=== PATIENT | male | born 1995 | race Caucasian/White ===

== ENCOUNTER 2016-05-20 11:49 | Emergency (ER) | payer OTHER ==
[~2016-05-20 11:49] MED LIST: AZIT250T3 PO; LORA10TA2 PO; NAPR250T2 PO; OMEP40CA2 PO; PERC5TAB6 PO
--- NOTE | 2016-05-20 15:10 | EDDOCDS ---
Physician Documentation [facility] Name: Donato Bacon Age: 21 yrs Sex: Male : 1995 Arrival Date: 05/20/2016 Time: 11:49 Bed 31 Private MD: Alex Gutierrez W Disposition: 05/20/16 14:45 Discharged to Home/Self Care. Impression: Anxiety disorder, unspecified. - Condition is Stable. - Discharge Instructions: Panic Attacks, Generalized Anxiety Disorder. - Prescriptions for Ativan 0.5 mg Oral Tablet - take 1 tablet by ORAL route every 8 hours As needed; 10 tablet. - Medication Reconciliation, Local Pharmacy Hours form. - Follow up: Alex Gutierrez; When: 1 - 2 days; Reason: Recheck today's complaints. - Problem is new. - Symptoms have improved. - Notes: You were seen in the ED for anxiety. You were seen by social work as well and provided with outpatient mental health referrals for ongoing care and treatment - please call today to make this appointment. You may take Ativan as needed for anxiety (no driving or operating machinery while on this medication). Return to the ED for any worsening depression, thoughts of harming self or others or any other concerns. Historical: - Allergies: No known drug Allergies; - Home Meds: 1. omeprazole 40 mg Oral cpDR 1 cap once daily 2. loratadine 10 mg Oral tab 1 tab once daily - PMHx: Seasonal Allergies; GERD; fractured ribs; Anxiety; - PSHx: none; - Social history: Smoking status: other Patient uses street drugs, marijuana, No barriers to communication noted, The patient speaks fluent Kazakh, Speaks appropriately for age. - Family history: Not pertinent. - : The pt / caregiver states he / she is not on anticoagulants. Home medication list is obtained from the patient. - Exposure Risk Screening:: None identified. Vital Signs: 05/20 11:51 BP 144 / 79; Pulse 75; Resp 18 S; Temp 97.8(O); Pulse Ox 100% on R/A; Weight 70.31 kg / gr2 155.01 lbs (R); Height 5 ft. 9 in. (175.26 cm) (R); Pain 0/10; 15:07 BP 135 / 72; Pulse 72; Resp 16; Temp 97.6(O); Pulse Ox 98% on R/A; Pain 0/10; mlb1 11:51 Body Mass Index 22.89 (70.31 kg, 175.26 cm) gr2 MDM: 12:48 Consult PFS/PSA/Patient Assistant ordered. br1 12:48 Confirm accurate psychiatric medication list and times of last dosage ordered. br1 14:55 Consult PFS/PSA/Patient Assistant complete. mlb1 Signatures: Darian Kingsley RN RN mlb1 Jovana Joe RN RN ck1 Richmond Rothman MD MD br1 MTDD
--- NOTE | 2016-05-20 15:10 | EDDOCDS ---
Nurse's Notes [facility] Name: Donato Bacon Age: 21 yrs Sex: Male : 1995 Arrival Date: 05/20/2016 Time: 11:49 Bed 31 Private MD: Alex Gutierrez W Diagnosis: Anxiety disorder, unspecified Presentation: 05/20 12:00 Presenting complaint: Patient states: Worsening anxiety over the years. "It's socially ck1 crippling". Mental Health Triage Level: Level 1- Pt displays no suicidal or homicidal ideations and does not appear to be a danger to self or others. Adult Sepsis Screening: The patient does not have new or worsening altered mentation. Patient's respiratory rate is less than 22. Systolic blood pressure is greater than 100. Patient has a qSOFA score of 0- Negative Sepsis Screen. Suicide/Homicide risk assessment- the patient denies having any suicidal and/or homicidal ideations and does not present with any other emotional, behavioral or mental health complaints. 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 Transition of care: patient was not received from another setting of care. 12:00 Acuity: [place] Level 4 ck1 12:00 Method Of Arrival: Walkin/Carried/Asstd ck1 Triage Assessment: 12:02 General: Appears in no apparent distress, comfortable, Behavior is anxious, ck1 cooperative. Pain: Denies pain. HIV screening NA for this visit. HIV screening NA for this visit Offered previously. Neurological: Level of Consciousness is awake, alert, obeys commands, Oriented to person, place, time. Respiratory: Respiratory effort is unlabored, Respiratory pattern is regular, symmetrical. GI: Reports anorexia. GI: Reports nausea. Derm: Skin is pink, warm & dry. Historical: - Allergies: No known drug Allergies; - Home Meds: 1. omeprazole 40 mg Oral cpDR 1 cap once daily 2. loratadine 10 mg Oral tab 1 tab once daily - PMHx: Seasonal Allergies; GERD; fractured ribs; Anxiety; - PSHx: none; - Social history: Smoking status: other Patient uses street drugs, marijuana, No barriers to communication noted, The patient speaks fluent [place], Speaks appropriately for age. - Family history: Not pertinent. - : The pt / caregiver states he / she is not on anticoagulants. Home medication list is obtained from the patient. - Exposure Risk Screening:: None identified. Screenin:14 Screening information is obtained from the patient. Fall risk: No risks identified. mlb1 Assistance ADL's: requires no assistance with activities of daily living. Abuse/DV Screen: The patient / caregiver reports he/she is: not in a situation that causes fear, pain or injury. Nutritional screening: No deficits noted. Advance Directives: Currently, there is no health care proxy. home support is adequate. Assessment: 12:13 General: Appears in no apparent distress, Behavior is anxious, cooperative. Pain: mlb1 Denies pain. Neurological: No deficits noted. Respiratory: Airway is patent Respiratory effort is even, unlabored. Derm: No deficits noted. 13:46 General: Appears in no apparent distress, comfortable, Behavior is anxious, mlb1 cooperative. Pain: Denies pain. Neurological: No deficits noted. 14:45 General: Appears in no apparent distress, Behavior is anxious, cooperative. Pain: mlb1 Denies pain. Neurological: No deficits noted. Respiratory: Airway is patent Respiratory effort is even, unlabored. 15:07 General: Appears in no apparent distress, comfortable, Behavior is anxious, mlb1 cooperative, quiet. Pain: Denies pain. Neurological: No deficits noted. Vital Signs: 11:51 BP 144 / 79; Pulse 75; Resp 18 S; Temp 97.8(O); Pulse Ox 100% on R/A; Weight 70.31 kg gr2 (R); Height 5 ft. 9 in. (175.26 cm) (R); Pain 0/10; 15:07 BP 135 / 72; Pulse 72; Resp 16; Temp 97.6(O); Pulse Ox 98% on R/A; Pain 0/10; mlb1 11:51 Body Mass Index 22.89 (70.31 kg, 175.26 cm) gr2 Vitals: 11:51 Log In Time: May 20, 2016 at 11:51. RN notified that patient meets Red Flag gr2 criteria. ED Course: 11:51 Patient visited by Lise Jaramillo. gr2 11:51 Alex Gutierrez is Private Physician. gr2 11:51 Patient moved to Waiting gr2 12:00 Patient visited by Lise Jaramillo. gr2 12:01 Triage Initiated ck1 12:03 Patient moved to 31 ck1 12:14 Patient visited by Darian Kingsley RN. mlb1 12:33 Richmond Rothman MD is Attending Physician. br1 12:47 Patient visited by Richmond Rothman MD. br1 13:45 Patient visited by John Mack. jml1 13:46 Patient visited by Darian Kingsley RN. mlb1 14:30 Patient visited by Justin Jimenez PCA. j 14:44 Alex Gutierrez is Referral Physician. br1 14:46 Patient visited by Justin Jimenez PCA. j 14:53 The patient / caregiver is instructed regarding the plan of care and ED course. mlb1 14:53 No IV's were initiated during this patient's visit. No procedures done that require mlb1 assistance. 15:02 Patient visited by Justin Jimenez PCA. [facility] 15:09 Patient visited by Darian Kingsley RN. mlb1 Order Results: There are currently no results for this order. Outcome: 14:45 Discharge ordered by Provider. br1 15:08 Discharge Assessment: Patient awake, alert and oriented x 3. No cognitive and/or mlb1 functional deficits noted. Patient verbalized understanding of disposition instructions. patient administered narcotics - no. The following High Risk Discharge criteria are identified: None. Discharged to home ambulatory. Condition: good. Discharge instructions given to patient, Instructed on discharge instructions, follow up and referral plans. medication usage, Demonstrated understanding of instructions, medications, Pt was receptive of discharge instructions/ teaching. Prescriptions given X 1. No special radiology studies were completed. Property sent home with patient. 15:09 Patient left the ED. mlb1 Signatures: Darian Kingsley, RN RN mlb1 Jovana Joe RN RN ck1 Richmond Rothman MD MD br1 John Mack jml1 Lise Jaramillo gr2 Justin Jimenez PCA [facility] MTDD
--- NOTE | 2016-05-22 16:10 | EDDOCDS ---
Physician Documentation [facility] Name: Donato Bacon Age: 21 yrs Sex: Male : 1995 Arrival Date: 05/20/2016 Time: 11:49 Bed 31 Private MD: Alex Gutierrez W Disposition: 05/20/16 14:45 Discharged to Home/Self Care. Impression: Anxiety disorder, unspecified. - Condition is Stable. - Discharge Instructions: Panic Attacks, Generalized Anxiety Disorder. - Prescriptions for Ativan 0.5 mg Oral Tablet - take 1 tablet by ORAL route every 8 hours As needed; 10 tablet. - Medication Reconciliation, Local Pharmacy Hours form. - Follow up: Alex Gutierrez; When: 1 - 2 days; Reason: Recheck today's complaints. - Problem is new. - Symptoms have improved. - Notes: You were seen in the ED for anxiety. You were seen by social work as well and provided with outpatient mental health referrals for ongoing care and treatment - please call today to make this appointment. You may take Ativan as needed for anxiety (no driving or operating machinery while on this medication). Return to the ED for any worsening depression, thoughts of harming self or others or any other concerns. Historical: - Allergies: No known drug Allergies; - Home Meds: 1. omeprazole 40 mg Oral cpDR 1 cap once daily 2. loratadine 10 mg Oral tab 1 tab once daily - PMHx: Seasonal Allergies; GERD; fractured ribs; Anxiety; - PSHx: none; - Social history: Smoking status: other Patient uses street drugs, marijuana, No barriers to communication noted, The patient speaks fluent Irish, Speaks appropriately for age. - Family history: Not pertinent. - : The pt / caregiver states he / she is not on anticoagulants. Home medication list is obtained from the patient. - Exposure Risk Screening:: None identified. Vital Signs: 05/20 11:51 BP 144 / 79; Pulse 75; Resp 18 S; Temp 97.8(O); Pulse Ox 100% on R/A; Weight 70.31 kg / gr2 155.01 lbs (R); Height 5 ft. 9 in. (175.26 cm) (R); Pain 0/10; 15:07 BP 135 / 72; Pulse 72; Resp 16; Temp 97.6(O); Pulse Ox 98% on R/A; Pain 0/10; mlb1 11:51 Body Mass Index 22.89 (70.31 kg, 175.26 cm) gr2 MDM: 12:48 Consult PFS/PSA/Woods Manager ordered. br1 12:48 Confirm accurate psychiatric medication list and times of last dosage ordered. br1 14:55 Consult PFS/PSA/Woods Manager complete. mlb1 15:13 Financial registration complete. mm15 15:13 [facility] [place] was scanned into spigit and attached to record. mm15 05/21 12:56 T-Sheet-- Draft Copy was scanned into spigit and attached to record. gb Signatures: Rupa Orodñez, Reg Reg gb Darian Kingsley RN RN mlb1 Jovana Joe RN RN ck1 Richmond Rothman MD MD br1 Kathryn Dhillon mm15 The chart was reviewed and I authenticate all verbal orders and agree with the evaluation and treatment provided.Attachments: 05/20 15:13 [facility] [place] mm15 05/21 12:56 T-Sheet-- Draft Copy gb Chart Complete MTDD
--- NOTE | 2016-05-22 16:10 | EDDOCDS ---
Nurse's Notes [facility] Name: Donato Bacon Age: 21 yrs Sex: Male : 1995 Arrival Date: 05/20/2016 Time: 11:49 Bed 31 Private MD: Alex Gutierrez W Diagnosis: Anxiety disorder, unspecified Presentation: 05/20 12:00 Presenting complaint: Patient states: Worsening anxiety over the years. "It's socially ck1 crippling". Mental Health Triage Level: Level 1- Pt displays no suicidal or homicidal ideations and does not appear to be a danger to self or others. Adult Sepsis Screening: The patient does not have new or worsening altered mentation. Patient's respiratory rate is less than 22. Systolic blood pressure is greater than 100. Patient has a qSOFA score of 0- Negative Sepsis Screen. Suicide/Homicide risk assessment- the patient denies having any suicidal and/or homicidal ideations and does not present with any other emotional, behavioral or mental health complaints. 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 Transition of care: patient was not received from another setting of care. 12:00 Acuity: [place] Level 4 ck1 12:00 Method Of Arrival: Walkin/Carried/Asstd ck1 Triage Assessment: 12:02 General: Appears in no apparent distress, comfortable, Behavior is anxious, ck1 cooperative. Pain: Denies pain. HIV screening NA for this visit. HIV screening NA for this visit Offered previously. Neurological: Level of Consciousness is awake, alert, obeys commands, Oriented to person, place, time. Respiratory: Respiratory effort is unlabored, Respiratory pattern is regular, symmetrical. GI: Reports anorexia. GI: Reports nausea. Derm: Skin is pink, warm & dry. Historical: - Allergies: No known drug Allergies; - Home Meds: 1. omeprazole 40 mg Oral cpDR 1 cap once daily 2. loratadine 10 mg Oral tab 1 tab once daily - PMHx: Seasonal Allergies; GERD; fractured ribs; Anxiety; - PSHx: none; - Social history: Smoking status: other Patient uses street drugs, marijuana, No barriers to communication noted, The patient speaks fluent Uruguayan, Speaks appropriately for age. - Family history: Not pertinent. - : The pt / caregiver states he / she is not on anticoagulants. Home medication list is obtained from the patient. - Exposure Risk Screening:: None identified. Screenin:14 Screening information is obtained from the patient. Fall risk: No risks identified. mlb1 Assistance ADL's: requires no assistance with activities of daily living. Abuse/DV Screen: The patient / caregiver reports he/she is: not in a situation that causes fear, pain or injury. Nutritional screening: No deficits noted. Advance Directives: Currently, there is no health care proxy. home support is adequate. Assessment: 12:13 General: Appears in no apparent distress, Behavior is anxious, cooperative. Pain: mlb1 Denies pain. Neurological: No deficits noted. Respiratory: Airway is patent Respiratory effort is even, unlabored. Derm: No deficits noted. 13:46 General: Appears in no apparent distress, comfortable, Behavior is anxious, mlb1 cooperative. Pain: Denies pain. Neurological: No deficits noted. 14:45 General: Appears in no apparent distress, Behavior is anxious, cooperative. Pain: mlb1 Denies pain. Neurological: No deficits noted. Respiratory: Airway is patent Respiratory effort is even, unlabored. 15:07 General: Appears in no apparent distress, comfortable, Behavior is anxious, mlb1 cooperative, quiet. Pain: Denies pain. Neurological: No deficits noted. Social Work Consult: 15:37 Social Work Note: Pt presented with c/o severe anxiety, worsening over the last 3 days. ca Pt cannot pinpoint a specific stressor. He denies any SI or HI, no drugs or alcohol. Positive support system and was brought to ED by his mother. Provided pt with referrals to outpt walk-in clinics for MH. Also provided crisis numbers. Pt given a prescription, discharged with ride home. Vital Signs: 11:51 BP 144 / 79; Pulse 75; Resp 18 S; Temp 97.8(O); Pulse Ox 100% on R/A; Weight 70.31 kg gr2 (R); Height 5 ft. 9 in. (175.26 cm) (R); Pain 0/10; 15:07 BP 135 / 72; Pulse 72; Resp 16; Temp 97.6(O); Pulse Ox 98% on R/A; Pain 0/10; mlb1 11:51 Body Mass Index 22.89 (70.31 kg, 175.26 cm) gr2 Vitals: 11:51 Log In Time: May 20, 2016 at 11:51. RN notified that patient meets Red Flag gr2 criteria. ED Course: 11:51 Patient visited by Lise Jaramillo. gr2 11:51 Alex Gutierrez is Private Physician. gr2 11:51 Patient moved to Waiting gr2 12:00 Patient visited by Lise Jaramillo. gr2 12:01 Triage Initiated ck1 12:03 Patient moved to 31 ck1 12:14 Patient visited by Darian Kingsley, TYRA. mlb1 12:33 Richmond Rothman MD is Attending Physician. br1 12:47 Patient visited by Richmond Rothman MD. br1 13:45 Patient visited by John Mack. jml1 13:46 Patient visited by Darian Kingsley RN. mlb1 14:30 Patient visited by Justin Jimenez PCA. smj 14:44 Alex Gutierrez is Referral Physician. br1 14:46 Patient visited by Justin Jimenez PCA. smj 14:53 The patient / caregiver is instructed regarding the plan of care and ED course. mlb1 14:53 No IV's were initiated during this patient's visit. No procedures done that require mlb1 assistance. 15:02 Patient visited by Justin Jimenez PCA. smj 15:09 Patient visited by Darian Kingsley, TYRA. mlb1 15:13 [facility] Payment Agreement was scanned into Loco2 and attached to record. mm15 05/21 12:56 T-Sheet-- Draft Copy was scanned into Loco2 and attached to record. gb Order Results: There are currently no results for this order. Outcome: 05/20 14:45 Discharge ordered by Provider. br1 15:08 Discharge Assessment: Patient awake, alert and oriented x 3. No cognitive and/or mlb1 functional deficits noted. Patient verbalized understanding of disposition instructions. patient administered narcotics - no. The following High Risk Discharge criteria are identified: None. Discharged to home ambulatory. Condition: good. Discharge instructions given to patient, Instructed on discharge instructions, follow up and referral plans. medication usage, Demonstrated understanding of instructions, medications, Pt was receptive of discharge instructions/ teaching. Prescriptions given X 1. No special radiology studies were completed. Property sent home with patient. 15:09 Patient left the ED. mlb1 Signatures: Julia Shaver, PSA PSA ca Rupa Ordoñez, Reg Reg gb Sancho, Darian Webb RN RN mlb1 Heath,TYRA Whaley RN ck1 Richmond Rothman MD MD br1 John Mack jml1 Lise Jaramillo gr2 Kathryn Dhillon mm15 Justin Jimenez, ICHTHYOLOGIST ICHTHYOLOGIST [facility] Chart Complete MTDD
--- NOTE | 2016-05-22 16:10 | EDDOCDS ---
Physician Documentation [facility] Name: Donato Bacon Age: 21 yrs Sex: Male : 1995 Arrival Date: 05/20/2016 Time: 11:49 Bed 31 Private MD: Alex Gutierrez W Disposition: 05/20/16 14:45 Discharged to Home/Self Care. Impression: Anxiety disorder, unspecified. - Condition is Stable. - Discharge Instructions: Panic Attacks, Generalized Anxiety Disorder. - Prescriptions for Ativan 0.5 mg Oral Tablet - take 1 tablet by ORAL route every 8 hours As needed; 10 tablet. - Medication Reconciliation, Local Pharmacy Hours form. - Follow up: Alex Gutierrez; When: 1 - 2 days; Reason: Recheck today's complaints. - Problem is new. - Symptoms have improved. - Notes: You were seen in the ED for anxiety. You were seen by social work as well and provided with outpatient mental health referrals for ongoing care and treatment - please call today to make this appointment. You may take Ativan as needed for anxiety (no driving or operating machinery while on this medication). Return to the ED for any worsening depression, thoughts of harming self or others or any other concerns. Historical: - Allergies: No known drug Allergies; - Home Meds: 1. omeprazole 40 mg Oral cpDR 1 cap once daily 2. loratadine 10 mg Oral tab 1 tab once daily - PMHx: Seasonal Allergies; GERD; fractured ribs; Anxiety; - PSHx: none; - Social history: Smoking status: other Patient uses street drugs, marijuana, No barriers to communication noted, The patient speaks fluent Kazakh, Speaks appropriately for age. - Family history: Not pertinent. - : The pt / caregiver states he / she is not on anticoagulants. Home medication list is obtained from the patient. - Exposure Risk Screening:: None identified. Vital Signs: 05/20 11:51 BP 144 / 79; Pulse 75; Resp 18 S; Temp 97.8(O); Pulse Ox 100% on R/A; Weight 70.31 kg / gr2 155.01 lbs (R); Height 5 ft. 9 in. (175.26 cm) (R); Pain 0/10; 15:07 BP 135 / 72; Pulse 72; Resp 16; Temp 97.6(O); Pulse Ox 98% on R/A; Pain 0/10; mlb1 11:51 Body Mass Index 22.89 (70.31 kg, 175.26 cm) gr2 MDM: 12:48 Consult PFS/PSA/Table Games Floor Supervisor ordered. br1 12:48 Confirm accurate psychiatric medication list and times of last dosage ordered. br1 14:55 Consult PFS/PSA/Table Games Floor Supervisor complete. mlb1 15:13 Financial registration complete. mm15 15:13 [facility] [place] Agreement was scanned into HutGrip and attached to record. mm15 05/21 12:56 T-Sheet-- Draft Copy was scanned into HutGrip and attached to record. gb Signatures: Rupa Ordoñez, Reg Reg gb Darian Kingsley RN RN mlb1 Jovana Joe RN RN ck1 Richmond Rothman MD MD br1 Kathryn Dhillon mm15 The chart was reviewed and I authenticate all verbal orders and agree with the evaluation and treatment provided.Attachments: 05/20 15:13 [facility] [place] Agreement mm15 05/21 12:56 T-Sheet-- Draft Copy gb Chart Complete MTDD
== END 2016-05-20 15:09 | disposition home or self-care (01) ==
LOC: M ED 11:49
DX: F41.9 Anxiety disorder, unspecified (principal); K21.9 Gastro-esophageal reflux disease without esophagitis; J30.2 Other seasonal allergic rhinitis; F12.90 Cannabis use, unspecified, uncomplicated; Z79.899 Other long term (current) drug therapy

== ENCOUNTER 2016-05-22 13:02 | Inpatient (IN) | payer MEDICAID, OTHER ==
[~2016-05-22] VITALS: Ht 180.3 cm; Wt 69.9 kg
[2016-05-22] MEDS ORDERED: ALPRAZolam 0.25 MG TAB As Ordered ONE ×2 (13:54→18:21)
[2016-05-22 14:49] LABS: MEAN CORPUSCULAR HEMOGLOBIN 30.3 pg (27.0-33.0); MEAN CORPUSCULAR HGB CONC 32.6 g/dl (32.0-36.5); MEAN CORPUSCULAR VOLUME 92.9 fl (80.0-96.0); RED CELL DISTRIBUTION WIDTH 11.9 % (11.5-14.5); WHITE BLOOD COUNT 10.6 K/mm3 (4.0-10.0)
[2016-05-22 15:05] LABS: AMPHETAMINES LEVEL URINE NEGATIVE (NEGATIVE); BENZODIAZEPINES URINE NEGATIVE (NEGATIVE); COCAINE METABOLITE URINE NEGATIVE (NEGATIVE); CONTROL LINE INT CTR LINE PRESENT; METHADONE URINE NEGATIVE (NEGATIVE); OPIATES URINE NEGATIVE (NEGATIVE); TRICYCLIC ANTIDEPRESS URINE NEGATIVE (NEGATIVE)
[2016-05-22 15:24] LABS: ALBUMIN 4.8 GM/DL (3.2-5.2); ALBUMIN/GLOBULIN RATIO 1.55 (1.00-1.93); ALKALINE PHOSPHATASE 94 U/L (45-117); ALT/SGPT 17 U/L (12-78); ANION GAP 8 MEQ/L (8-16); AST/SGOT 12 U/L (15-37); BILIRUBIN,DIRECT 0.2 MG/DL (0.0-0.2); BILIRUBIN,TOTAL 0.5 MG/DL (0.2-1.0); BLOOD UREA NITROGEN 8 MG/DL (7-18); CALCIUM LEVEL 9.4 MG/DL (8.5-10.1); CARBON DIOXIDE LEVEL 30 MEQ/L (21-32); CHLORIDE LEVEL 105 MEQ/L (98-107); CREATININE FOR GFR 0.89 MG/DL (0.70-1.30); GLUCOSE, FASTING 89 MG/DL (70-105); SODIUM LEVEL 143 MEQ/L (136-145); TOTAL PROTEIN 7.9 GM/DL (6.4-8.2)
--- NOTE | 2016-05-22 20:15 | EDDOCDS ---
Physician Documentation [facility] Name: Donato Bacon Age: 21 yrs Sex: Male : 1995 Arrival Date: 05/22/2016 Time: 13:02 Bed U5 Private MD: Disposition: 05/22 18:20 Critical Care: Critical care not applicable. le Disposition: 05/22/16 18:20 Hospitalization ordered by Chauncey Rashid for Inpatient Admission. Preliminary diagnosis is Acute stress reaction. - Bed requested for Admit. - Status is Inpatient Admission. rw1 - Condition is Stable. - Problem is an acute exacerbation. - Symptoms are unchanged. Historical: - Allergies: no known allergies; - Home Meds: 1. omeprazole 40 mg Oral cpDR 1 cap once daily 2. loratadine 10 mg Oral tab 1 tab once daily - PMHx: Anxiety; GERD; Seasonal Allergies; - PSHx: none; - Social history: Smoking status: Patient states was never smoker of tobacco. No barriers to communication noted, The patient speaks fluent Italian. - Family history: Not pertinent. - : The pt / caregiver states he / she is not on anticoagulants. Home medication list is obtained from the patient. - Exposure Risk Screening:: None identified. Vital Signs: 13:16 BP 157 / 86; Pulse 65; Resp 18; Temp 96.8(T); Pulse Ox 100% on R/A; Weight 72.57 kg / sew 159.99 lbs (R); Height 5 ft. 11 in. (180.34 cm) (R); 16:55 BP 141 / 72; Pulse 61; Resp 16; Temp 97; Pulse Ox 100% on R/A; Pain 0/10; ld5 20:12 BP 145 / 84; Pulse 74; Resp 16; Temp 96.9(O); Pulse Ox 98% on R/A; Pain 0/10; rw1 13:16 Body Mass Index 22.32 (72.57 kg, 180.34 cm) sew MDM: 13:44 Consult PFS/PSA/Contract Attorney ordered. le 13:44 Consult PFS/PSA/Contract Attorney: Patient's case requires discussion with on-call le Psychiatrist ordered. 13:44 PSA/PFS to call Nursing Parts Designer, to enter patient data on [place] Safe [place] if patient le involuntarily admitted or transferred for SI or HI ordered. 13:44 Confirm accurate psychiatric medication list and times of last dosage ordered. le 13:44 Detain Pt Until Medically/PFS Cleared ordered. le 13:45 ALPRAZolam Tablet 1 mg PO once ordered. le 13:45 Acetaminophen Level Ordered. EDMS 13:45 Basic Metabolic Profile Ordered. EDMS 13:45 Complete Blood Count Ordered. EDMS 13:45 Drug Eval Toxicology ED Only Ordered. EDMS 13:45 Ethyl Alcohol (ethanol) Ordered. EDMS 13:45 Liver Profile Ordered. EDMS 13:45 Salicylate Level Ordered. EDMS 13:45 Thyroid Stimulating Hormone Ordered. EDMS 14:54 Consult PFS/PSA/Contract Attorney complete. bcj 15:47 Acetaminophen Level Reviewed. le 15:47 Complete Blood Count Reviewed. le 15:47 Drug Eval Toxicology ED Only Reviewed. le 15:47 Liver Profile Reviewed. le 15:47 Salicylate Level Reviewed. le 15:47 Basic Metabolic Profile Reviewed. le 15:47 Ethyl Alcohol (ethanol) Reviewed. le 15:47 Thyroid Stimulating Hormone Reviewed. le 15:48 The patient has been medically cleared for psychiatric evaluation, admission and/or le transfer. 16:06 Financial registration complete. zo 16:18 [facility] Payment Agreement was scanned into [facility] and attached to record. zo 16:27 REGULAR DIET PLASTIC SANDOVAL+DIET ordered. EDMS 17:18 Admit to [facility]: ordered. EDMS 18:12 [facility] Legal paperwork was scanned into [facility] and attached to record. ms 18:18 ALPRAZolam Tablet 1 mg PO once ordered. le 19:00 Consult PFS/PSA/Contract Attorney: Patient's case requires discussion with on-call ms Psychiatrist complete. 19:00 PSA/PFS to call Nursing Parts Designer, to enter patient data [place] Safe [place] if patient ms involuntarily admitted or transferred for SI or HI complete. 20:10 [facility] Legal paperwork was scanned into [facility] and attached to record. ms 20:11 [facility] Legal paperwork was scanned into [facility] and attached to record. ms Administered Medications: 13:59 Drug: ALPRAZolam 1 mg [alprazolam 0.25 mg tablet (4 tabs)] Route: PO; ead 19:59 Follow up: Response: No Adverse Reaction rw1 18:29 Drug: ALPRAZolam 1 mg [alprazolam 0.25 mg tablet (4 tabs)] Route: PO; ld5 19:58 Follow up: Response: No Adverse Reaction rw1 Signatures: Dispatcher [employer] EDMS Nate Cabrales, RN RN bcMarcia Aguirre, PSA PSA ms Slava Avilez,GRINDER OPERATOR GRINDER OPERATOR rw1 Jeremías Munoz Lisa, OIL LEASE BROKER OIL LEASE BROKER Thao Kebede RN RN jjr Dickerson, Laura RN ld5 Meg Glover RN The chart was reviewed and I authenticate all verbal orders and agree with the evaluation and treatment provided.Attachments: 16:18 [facility] Payment Agreement zo MTDD
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
[2016-05-22 20:30] VITALS: BP 134/81
[2016-05-22] MEDS ORDERED: MOM 30ML SUSPENSION UDC PO PRN (23:00)
[2016-05-22] MEDS ORDERED: traZODone 50 MG TAB PO PRN (23:00)
[2016-05-22] MEDS ORDERED: MAALOX 30 ML SUSP *UDC PO PRN (23:00)
[2016-05-22] MEDS: hydrOXYzine 50 MG TAB PO PRN (23:36)
[2016-05-23 06:38] VITALS: BP 151/95
[2016-05-23] MEDS: hydrOXYzine 50 MG TAB PO PRN ×2 (08:00→17:52)
[2016-05-23] MEDS: LORATADINE 10 MG TAB PO SCH (08:01)
[2016-05-23] MEDS: OMEPRAZOLE 20 MG CAP PO SCH (08:01)
[2016-05-23] MEDS ORDERED: CitaloPRAM (CeleXA) 10 MG TABLET PO ONE (13:00)
[2016-05-23 18:00] VITALS: BP 148/96
--- NOTE | 2016-05-23 20:07 | MHHPE ---
DATE OF ADMISSION: 05/22/2016 LEGAL STATUS AT ADMISSION: 9.39 legal status. CHIEF COMPLAINT: "I've been having panic attacks and I'm losing control." HISTORY OF PRESENT ILLNESS: A 21-year-old male without significant psychiatric problems, admitted to our unit on a 9.39 legal status. According to the chart, patient was referred to our emergency department by Dr. Christopher at [facility]. Patient was transported in an ambulance, since Dr. Christopher felt his mother was not safe riding in the car with the patient. Patient reported he has constant panic attacks and has to open the window to be able to get fresh air. Patient reports feeling depressed, hopeless, helpless. Reports suicidal and homicidal ideation towards his mother, very poor concentration, insomnia. Patient was agitated, losing behavioral control during his evaluation with Dr. Christopher at [facility]. He was very tearful. During the interview today, patient has admitted the above symptoms, and during the evaluation, patient stated that he broke his rib and as a consequence, he was treated with pain killers, and started abusing them. Patient admits that he is now buying "Percocet in the street." Patient is also abusing marijuana, says that he is trying to cut down on the amount he uses, and lately has been down to three or four joints a day. During the interview, patient has very poor eye contact. He is depressed, anxious, labile, and tearful. There is no evidence of psychotic symptoms. No auditory or visual hallucinations or delusions. Patient confronts continuous panic attacks and has poor insight of how to treat his psychiatric and chemical dependency problems. PAST MEDICAL HISTORY: Patient has been diagnosed with gastroesophageal reflux disease (GERD) and seasonal allergies, status post fracture of the rib. PAST PSYCHIATRIC HISTORY: Patient has not been treated for any psychiatric problem preciously. This is his first psychiatric admission. FAMILY HISTORY: Patient denies any psychiatric family problem. 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 Patient reports his support system are his parents. SUBSTANCE ABUSE HISTORY: As stated above, patient started abusing opiates after he broke his rib and he is also using marijuana on a daily basis. REVIEW OF SYSTEMS: CONSTITUTIONAL: No weight loss, fevers, chills, weakness, or fatigue. HEENT: No visual loss, blurry vision, double vision, or yellow sclerae. No hearing loss, nasal congestion, runny nose, or sore throat. There has been no rash or itching. CARDIOVASCULAR: No chest pain, chest pressure, chest discomfort, palpitations, or edema. RESPIRATORY: No shortness of breath, cough or sputum. GASTROINTESTINAL (GI): No anorexia, nausea, vomiting, or diarrhea. No abdominal pain or blood. GENITOURINARY (): No burning or pain on urination. NEUROLOGICAL: No headache, dizziness, syncope, paralysis, ataxia, numbness, or tingling. MUSCULOSKELETAL: No muscle back pain, joint pain, or stiffness. HEMATOLOGIC: No anemia, bleeding or bruising. LYMPHATICS: No history of a splenectomy. ENDOCRINE: No reports of sweating, cold or heat intolerance. No polyuria or polydipsia. ALLERGIES: No history of asthma, hives, eczema, or rhinitis. PHYSICAL EXAMINATION: As per physician financial assistant. LABORATORIES: Complete blood count (CBC): White blood cells 10.6, the rest was within normal limits. Basic metabolic panel (BMP) is unremarkable, including liver function tests. Thyroid stimulating hormone (TSH) is within normal limits. Urine drug screen is positive for cannabis, negative for alcohol level negative. MENTAL STATUS EXAMINATION: Patient is dressed in [facility]. Patient is cooperative, but he is very anxious and labile, tearful at times. Speech is soft and monotone. Mood is depressed and anxious. Patient is oriented to time, place, person, and situation. Attention and concentration are affected by his high anxiety. Memory is fair. Thought process are coherent, logical and goal-directed. Patient does not have auditory or visual hallucinations. Patient does not have paranoid, persecutory, somatic, grandiose, or evangelical delusions. Patient reports suicidal ideation and homicidal thoughts toward his mother. Judgment and insight are poor. DIAGNOSES: AXIS I: Unspecified depressive disorder, substance-induced mood disorder, polysubstance dependency, rule out major depressive disorder. AXIS II: Deferred. AXIS III: Gastroesophageal reflux disease (GERD). INITIAL TREATMENT PLAN: Patient was admitted on a 9.39 legal status. Complete history was obtained. With his permission, family will be contacted and database will be expanded. His medication regime will be reviewed and changed accordingly. He will be provided with a protected environment. He will treated with individual, group and milieu therapies. He will also receive supportive psychoeducation. Discharge planning with commence immediately. Length of stay will be between 5-7 days, and patient followup with be strongly recommended. The treatment plan will focus initially on depression, risk of suicide, and substance abuse.
[2016-05-23] MEDS: traZODone 100 MG TAB PO SCH (20:53)
[2016-05-24 06:23] VITALS: BP 118/55
[2016-05-24] MEDS: CitaloPRAM (CeleXA) 20 MG TAB PO SCH (08:01)
[2016-05-24] MEDS: hydrOXYzine 50 MG TAB PO PRN ×2 (08:01→20:10)
[2016-05-24] MEDS: LORATADINE 10 MG TAB PO SCH (08:01)
[2016-05-24] MEDS: OMEPRAZOLE 20 MG CAP PO SCH (08:01)
--- NOTE | 2016-05-24 10:14 | HPE ---
DATE OF ADMISSION: 05/22/2016 HISTORY OF PRESENT ILLNESS: Please refer to the psychiatric history and evaluation for further details on this admission. This examination and history is intended for medical issues which may need treatment, followup or consultation on this 21-year-old male. HOME MEDICATIONS: - loratadine 10 mg by mouth daily - omeprazole 40 mg by mouth daily LABORATORY STUDIES: White count 10.6, hemoglobin 14.5, hematocrit 44.6, and platelets 277,000. Electrolytes were normal. BUN and creatinine 8 and 0.89. Urine for toxicology was positive for cannabinoids. ALLERGIES: - DOG DANDER - DUST - GRASS - MOLDS - SMUTS PAST MEDICAL HISTORY: 1. Gastroesophageal reflux disease. 2. Seasonal allergies. FAMILY HISTORY: Noncontributory. SOCIAL HISTORY: He is single. He does not smoke cigarettes. He occasionally smokes marijuana. He has history of abusing opiates. ETOH - occasionally, some days more than others, usually just weekends. Recreational drug - marijuana. REVIEW OF SYSTEMS: Ten systems review was done and is unremarkable. Patient felt well. PHYSICAL EXAMINATION: 21-year-old cooperative male in no acute distress. Height 71 inches. Weight 70.1 kg. Body mass index (BMI) 21.5. Blood pressure 134/81. Pulse 76 Vital signs are stable. The patient is alert and oriented times three. Pupils equal and react to light. Extraocular movements intact. Cornea and sclera clear. Conjunctiva normal. No facial asymmetry. Pharynx, tongue and gums pink and moist. Tongue is midline. Neck is supple, without lymphadenopathy. No thyromegaly. No goiter. Chest clear to auscultation, without wheeze or retraction. Heart is regular. Abdomen benign. Bowel sounds positive. Genitourinary ()/Rectal: Not done. Extremities show full range of motion. No cyanosis, clubbing or edema. Peripheral pulses equal and palpable bilaterally. Skin is warm and dry. IMPRESSION AND PLAN: 1. Psychiatric. Plan per psychiatry. 2. No acute medical issues.
[2016-05-24] MEDS: ACETAMINOPHEN TAB 650MG DOSE (2X325MG) PO PRN ×2 (11:30→17:38)
[2016-05-24 18:00] VITALS: BP 144/86
--- NOTE | 2016-05-24 19:17 | IPN ---
DATE: 05/24/2016 SUBJECTIVE: "I'm feeling better today." OBJECTIVE: The patient is significantly less anxious. No evidence of panic episodes since he was started on medication. Has slept well with the help of trazodone. No evidence of withdrawal from opiates or drugs. MENTAL STATUS EXAMINATION: The patient is dressed in [facility]. The patient has fair eye contact. Speech is soft and monotone. Mood is depressed and anxious, but improved from yesterday. Affect is congruent with mood. No delusions or hallucinations. Memory is fair. Patient is fully oriented. Associations are intact. Thinking is logical. Thought content is appropriate. The patient is able to contract for safety and denies suicidal or homicidal ideations during the interview. Insight and judgment are fair. ASSESSMENT: 1. Unspecified depressive disorder. 2. Substance-induced mood disorder. 3. Polysubstance dependency. PLAN: 1. Continue with Celexa 20 mg by mouth every morning. 2. Continue with trazodone 100 mg by mouth at bedtime. 3. Continue with Librium 10 mg by mouth three times a day for detox protocol. This medication will be tapered in the next few days and discontinued. 4. Continue with medication management, individual and group therapy.
--- NOTE | 2016-05-24 21:15 | EDDOCDS ---
Physician Documentation [facility] Name: Donato Bacon Age: 21 yrs Sex: Male : 1995 Arrival Date: 05/22/2016 Time: 13:02 Bed U5 Private MD: Disposition: 05/22 18:20 Critical Care: Critical care not applicable. le Disposition: 05/22/16 18:20 Hospitalization ordered by Chauncey Rashid for Inpatient Admission. Preliminary diagnosis is Acute stress reaction. - Bed requested for Admit. - Status is Inpatient Admission. rw1 - Condition is Stable. - Problem is an acute exacerbation. - Symptoms are unchanged. Historical: - Allergies: no known allergies; - Home Meds: 1. omeprazole 40 mg Oral cpDR 1 cap once daily 2. loratadine 10 mg Oral tab 1 tab once daily - PMHx: Anxiety; GERD; Seasonal Allergies; - PSHx: none; - Social history: Smoking status: Patient states was never smoker of tobacco. No barriers to communication noted, The patient speaks fluent Bulgarian. - Family history: Not pertinent. - : The pt / caregiver states he / she is not on anticoagulants. Home medication list is obtained from the patient. - Exposure Risk Screening:: None identified. Vital Signs: 13:16 BP 157 / 86; Pulse 65; Resp 18; Temp 96.8(T); Pulse Ox 100% on R/A; Weight 72.57 kg / sew 159.99 lbs (R); Height 5 ft. 11 in. (180.34 cm) (R); 16:55 BP 141 / 72; Pulse 61; Resp 16; Temp 97; Pulse Ox 100% on R/A; Pain 0/10; ld5 20:12 BP 145 / 84; Pulse 74; Resp 16; Temp 96.9(O); Pulse Ox 98% on R/A; Pain 0/10; rw1 13:16 Body Mass Index 22.32 (72.57 kg, 180.34 cm) sew MDM: 13:44 Consult PFS/PSA/Electric Meter Repairer ordered. le 13:44 Consult PFS/PSA/Electric Meter Repairer: Patient's case requires discussion with on-call le Psychiatrist ordered. 13:44 PSA/PFS to call Nursing Manager Operations And Procurement, to enter patient data on [place] Safe Act if patient le involuntarily admitted or transferred for SI or HI ordered. 13:44 Confirm accurate psychiatric medication list and times of last dosage ordered. le 13:44 Detain Pt Until Medically/PFS Cleared ordered. le 13:45 ALPRAZolam Tablet 1 mg PO once ordered. le 13:45 Acetaminophen Level Ordered. EDMS 13:45 Basic Metabolic Profile Ordered. EDMS 13:45 Complete Blood Count Ordered. EDMS 13:45 Drug Eval Toxicology ED Only Ordered. EDMS 13:45 Ethyl Alcohol (ethanol) Ordered. EDMS 13:45 Liver Profile Ordered. EDMS 13:45 Salicylate Level Ordered. EDMS 13:45 Thyroid Stimulating Hormone Ordered. EDMS 14:54 Consult PFS/PSA/Electric Meter Repairer complete. bcj 15:47 Acetaminophen Level Reviewed. le 15:47 Complete Blood Count Reviewed. le 15:47 Drug Eval Toxicology ED Only Reviewed. le 15:47 Liver Profile Reviewed. le 15:47 Salicylate Level Reviewed. le 15:47 Basic Metabolic Profile Reviewed. le 15:47 Ethyl Alcohol (ethanol) Reviewed. le 15:47 Thyroid Stimulating Hormone Reviewed. le 15:48 The patient has been medically cleared for psychiatric evaluation, admission and/or le transfer. 16:06 Financial registration complete. zo 16:18 [facility] Payment Agreement was scanned into [employer] and attached to record. zo 16:27 REGULAR DIET PLASTIC SANDOVAL+DIET ordered. EDMS 17:18 Admit to [facility]: ordered. EDMS 18:12 [facility] Legal paperwork was scanned into [employer] and attached to record. ms 18:18 ALPRAZolam Tablet 1 mg PO once ordered. le 19:00 Consult PFS/PSA/Electric Meter Repairer: Patient's case requires discussion with on-call ms Psychiatrist complete. 19:00 PSA/PFS to call Nursing Manager Operations And Procurement, to enter patient data on [place] Safe [place] if patient ms involuntarily admitted or transferred for SI or HI complete. 20:10 [facility] Legal paperwork was scanned into [employer] and attached to record. ms 20:11 [facility] Legal paperwork was scanned into [employer] and attached to record. ms 05/23 10:33 T-Sheet-- Draft Copy was scanned into [employer] and attached to record. mm15 Administered Medications: 05/22 13:59 Drug: ALPRAZolam 1 mg [alprazolam 0.25 mg tablet (4 tabs)] Route: PO; ead 19:59 Follow up: Response: No Adverse Reaction rw1 18:29 Drug: ALPRAZolam 1 mg [alprazolam 0.25 mg tablet (4 tabs)] Route: PO; ld5 19:58 Follow up: Response: No Adverse Reaction rw1 Signatures: Dispatcher [employer] EDNate Robertson, RN RN bcj Anibal, Marcia, PSA PSA ms Raghav,Slava,MARKET RESEARCH COORDINATOR MARKET RESEARCH COORDINATOR rw1 Jeremías Munoz Lisa, TECHNICAL STENOGRAPHER Thao Odom RN RN Kathryn Mann mm15 Wendy Bustos RN ld5 Meg Glover RN ead The chart was reviewed and I authenticate all verbal orders and agree with the evaluation and treatment provided.Attachments: 16:18 [facility] Payment Agreement zo 05/23 10:33 T-Sheet-- Draft Copy mm15 Chart Complete MTDD
--- NOTE | 2016-05-24 21:15 | EDDOCDS ---
Nurse's Notes [facility] Name: Donato Bacon Age: 21 yrs Sex: Male : 1995 Arrival Date: 05/22/2016 Time: 13:[address] MD: Diagnosis: Acute stress reaction Presentation: 05/22 13:15 Presenting complaint: Patient states: increased anxiety and "some depression" jjr prescribed 3 days worth of lorazepam "it only worked the first time". Mental Health Triage Level: Level 2: The patient was brought to the ED for evaluation because of a legal pickup order. Adult Sepsis Screening: The patient does not have new or worsening altered mentation. Patient's respiratory rate is less than 22. Systolic blood pressure is greater than 100. Patient has a qSOFA score of 0- Negative Sepsis Screen. Suicide/Homicide risk assessment- The patient reports that he/she has not been admitted to an inpatient mental health facility in the last 30 days. The patient reports that he/she has a recent or current history of substance abuse. Status: Patient is not a extension service supervisor or dependent. Transition of care: patient was not received from another setting of care. 13:15 Acuity: [place] Level 3 jjr 13:15 Method Of Arrival: Police Car jjr Triage Assessment: 13:17 General: Appears in no apparent distress, Behavior is cooperative, tearful holding head jjr in hands not making eye contact with this loan underwriter. Pain: Denies pain. HIV screening NA for this visit Offered previously. Historical: - Allergies: no known allergies; - Home Meds: 1. omeprazole 40 mg Oral cpDR 1 cap once daily 2. loratadine 10 mg Oral tab 1 tab once daily - PMHx: Anxiety; GERD; Seasonal Allergies; - PSHx: none; - Social history: Smoking status: Patient states was never smoker of tobacco. No barriers to communication noted, The patient speaks fluent Sammarinese. - Family history: Not pertinent. - : The pt / caregiver states he / she is not on anticoagulants. Home medication list is obtained from the patient. - Exposure Risk Screening:: None identified. Screenin:18 Screening information is obtained from the patient. Fall risk: No risks identified. jjr Assistance ADL's: requires no assistance with activities of daily living. Abuse/DV Screen: The patient / caregiver reports he/she is: not in a situation that causes fear, pain or injury. Nutritional screening: No deficits noted. Advance Directives: There is no active DNR order. home support is adequate. Assessment: 13:18 General: Appears in no apparent distress, Behavior is cooperative. Neurological: No jjr deficits noted. Respiratory: No deficits noted. 13:59 General: Appears in no apparent distress, Behavior is crying, pt holding face in hands, ead tearful, states "I'm so claustrophobic." pt given alprazolam as ordered.. Respiratory: Airway is patent Respiratory effort is even, unlabored. Derm: Skin is pink, warm & dry. 14:45 General: Appears in no apparent distress, comfortable, Behavior is cooperative. Pain: bcj Denies pain. Neurological: Level of Consciousness is awake, alert. Derm: Skin is pink, warm & dry. 15:12 General: Pt sitting up in bed. No apparent distress. Poor eye contact with this RN. ld5 Denies any needs at this time. Will continue to monitor. Pain: Denies pain. Neurological: Level of Consciousness is awake, obeys commands. Respiratory: Airway is patent Respiratory effort is even, unlabored. GI: Denies nausea, vomiting. Derm: red dyer to left wrist, pt denies any type of self harm. 16:00 General: Appears in no apparent distress. General: Pt sitting up in bed looking around. ld5 Safety maintained. Will continue to monitor. Respiratory: Airway is patent Respiratory effort is even, unlabored. 16:51 General: Pt screaming out "I'm so hungry! I'm going to pass out!" This RN in to pt's ld5 room to assess situation. Pt crying and saying he is going to pass out from hungry. It was explained to pt that dinner trays had not yet arrived but crackers and something to drink could be obtained for pt. When this RN returned to room with food, pt states "I have no appetite. But I am so hungry!" Support provided. Food left at bedside. 18:29 General: Pt crying an appears anxious. Unable to calm pt down. Provider made aware and ld5 pt medicated per orders. Pt thankful for the medication. Pt states "I just want to be able to eat and now I'll be able to eat. 19:30 General: Appears distressed, uncomfortable, Behavior is anxious, cooperative, crying. rw1 Pain: Denies pain. Neurological: Level of Consciousness is awake, alert, obeys commands, Oriented to person, place, time. Respiratory: Airway is patent Respiratory effort is even, unlabored. Derm: Skin is pink, warm & dry. normal. Mental Health Eval: 18:12 Mental health consult is initiated at 16:30. Status: The patient is not a extension service supervisor or dependent. [facility] Behavioral Health: The patient is not an established patient of [facility] Behavioral Health. Referral Information: Evaluation referral is generated by a police agency: [facility]. The patient was referred for evaluation because Pt was seen by Dr. Christopher today, became very upset due to his anxiety. Subjective: The patients chief complaint is I am really stressed. I have panic attacks a lot, and I can't stand it anymore. I fell and broke my ribs before [place] and my anxiety has gotten a million times worse. Nothing I have taken has worked, I wake up at 0230 and am I a panic. When I get up in the morning, I am in a terrible mood and I'm terrible to my family. I can't function because my anxiety gets so bad that I just sob. Delusions are denied. Patient's mood is anxious, depressed. Mental Health history: anxiety, Mental Health Admissions: None. Current Outpatient Mental Health Services: None. Current living environment is The patient currently lives with his / her parents, . Patient presents to Emergency Department with the following symptoms within the past 2 weeks: anxiety, feelings of helplessness/hopelessness, Homicidal ideation toward their mother, poor concentration, sleep disturbance - insomnia. Substance abuse: Pt denies. Mental status exam: Patients appearance is appropriate, Patient's behavior is agitated, Speech is normal. Affect is tearful. DSM-V Differential Diagnosis: Acute Stress Disorder (F 43.0). 18:25 Disposition: Medically cleared for disposition by Vibha GARRETT Psychiatric Consult ac is performed by phone with Dr Chauncey Rashid MD. [facility] Admission Criteria: The patient displays homicidal ideation. The patient requires continuous observation and/or control to protect self, others or property. The patient's care requires a multi-modal treatment plan under close supervision and coordination due to the complexity and severity of the patient's symptoms. The patient requires administration and monitoring of psychoactive medications by skilled medical providers due to the side effects of the psychoactive medications or significant dosage adjustments. Legal Status: Patient's legal status will be Emergency admission: . Narrative: Pt presented after being seen by Dr. Moulton in [facility]. Pt was screaming and crying while at the doctor's office, was transported by police as Dr. Moulton did not feel pt's mother was safe riding with pt in her car. Pt states he can't sleep because he wakes up at 0230 every morning feeling like he has "a blowdryer blowing in my face", has to open window so he can get fresh air. Pt reports frequent daily panic attacks. Pt reports falling and breaking a rib around [place], started abusing opiates at that time. PT is negative for opiates currently, admits to abusing them recently. Pt also admits to smoking marijuana, has been haranguing his mother to give him money for marijuana. Pt, per mother, has become more violent toward her and his father in last weeks. Pt is not able to CFS at this time, is tearful throughout most of interview. 18:49 DSM-V Differential Diagnosis: Generalized Anxiety Disorder (F41.1). Insurance ac Pre-Certification: approved by: Pt approved for 5 days with review due on . Auth. # is [id number]. Psych: 14:47 Mental Health Triage Level: Level 2: The patient was brought to the ED for evaluation [facility] because of a legal pickup order. 14:47 Subjective: The patients chief complaint is feeling anxious not sleeping made vague threats to harm self. Delusions are denied. Patient's mood is anxious, Hallucinations are denied. 14:47 Objective: Patient is cooperative, Speech is pressured, Affect is appropriate. 14:47 Substance abuse: Pt denies Vital Signs: 13:16 BP 157 / 86; Pulse 65; Resp 18; Temp 96.8(T); Pulse Ox 100% on R/A; Weight 72.57 kg sew (R); Height 5 ft. 11 in. (180.34 cm) (R); 16:55 BP 141 / 72; Pulse 61; Resp 16; Temp 97; Pulse Ox 100% on R/A; Pain 0/10; ld5 20:12 BP 145 / 84; Pulse 74; Resp 16; Temp 96.9(O); Pulse Ox 98% on R/A; Pain 0/10; rw1 13:16 Body Mass Index 22.32 (72.57 kg, 180.34 cm) sew Vitals: 20:13 Log In time N/A- police car arrival. rw1 ED Course: 13:03 Patient visited by Sruthi Lazcano Reg. lg 13:03 Patient moved to Waiting lg 13:05 [facility] 13:05 Patient moved to [facility] jl 13:10 Patient visited by Vibha Marshall FNP. le 13:16 Triage Initiated jjr 13:16 Pt greeted and oriented to ED. Patient advised of names of staff involved in care, sew location of call farooq, wait times and NPO status. Patient has correct armband on for positive identification. Placed in gown. Placed in psych safe attire. Security observing. Property removed, inventory done, secured in belongings bag- placed in locked locker. Placed in locker 5. Psych Safety Check: Location: Psych Room. Visual Assessment: Cooperative. 13:17 Patient visited by Elvia Montiel. sew 13:18 The patient / caregiver is instructed regarding the plan of care and ED course. jjr 13:31 Patient visited by Kaz Millan. dpm 13:33 Patient visited by Osmin Solano. dem1 13:49 Patient visited by Osmin Solano. dem1 13:58 Patient visited by Meg Glover RN. ead 14:04 Patient visited by Kaz Millan. dpm 14:19 Patient visited by Kaz Millan. dpm 14:37 Patient visited by Kaz Millan. dpm 14:45 No apparent distress. Resting quietly. awaiting re-evaluation by ER physician. bcj 14:45 Security observing. bcj 14:45 No IV's were initiated during this patient's visit. Labs drawn. (by ED staff). Sent per [facility] order to lab. Urine collected. Clean catch specimen. Urine specimen sent to lab. 14:49 Patient visited by Nate Cabrales RN. bcj 14:51 Patient visited by Kaz Millan. dpm 15:02 Patient visited by Kaz Millan. dpm 15:15 Patient visited by Kaz Millan. dpm 15:32 Patient visited by Kaz Millan. dpm 15:42 Patient visited by Wendy Bustos,TYRA. ld5 16:01 Patient visited by Kaz Millan. dpm 16:14 Patient visited by Kaz Millan. dpm 16:18 [facility] Payment Agreement was scanned into [employer] and attached to record. zo 16:30 Patient visited by Kaz Millan. dpm 16:55 Patient visited by Wendy Bustos RN. ld5 17:03 Patient visited by Kaz Millan. dpm 17:33 Patient visited by Kaz Millan. dpm 18:04 Patient visited by Kaz Millan. dpm 18:12 [facility] Legal paperwork was scanned into [employer] and attached to record. ms 18:20 Chauncey Rashid MD is Hospitalizing Provider. le 18:26 Patient visited by Kaz Millan. dpm 18:31 Patient visited by Wendy Butsos RN. ld5 18:43 Patient visited by Kaz Millan. dpm 19:01 Patient visited by Edmond Emery. tr 19:15 Patient visited by Edmond Emery. tr 19:29 Patient visited by Edmond Emery. tr 19:44 Patient visited by Edmond Emery. tr 19:58 Slava Avilez LPN is Primary Nurse. rw1 19:59 Patient visited by Edmond Emery. tr 20:10 [facility] Legal paperwork was scanned into [employer] and attached to record. ms 20:11 [facility] Legal paperwork was scanned into [employer] and attached to record. ms 20:12 No procedures done that require assistance. rw1 05/23 10:33 T-Sheet-- Draft Copy was scanned into [employer] and attached to record. mm15 Administered Medications: 05/22 13:59 Drug: ALPRAZolam 1 mg [alprazolam 0.25 mg tablet (4 tabs)] Route: PO; ead 19:59 Follow up: Response: No Adverse Reaction rw1 18:29 Drug: ALPRAZolam 1 mg [alprazolam 0.25 mg tablet (4 tabs)] Route: PO; ld5 19:58 Follow up: Response: No Adverse Reaction rw1 Attachments: 20:10 [facility] Legal paperwork ms 20:11 E Legal paperwork ms Order Results: Lab Order: Acetaminophen Level; [facility] 05/22/16 14:42 Test: ACETAMINOPHEN LEVEL; Value: < 2.0; Range: 10.0-30.0; Abnormal: Below low normal; Units: UG/ML; Status: F Lab Order: Basic Metabolic Profile; [facility] 05/22/16 14:42 Test: GLUCOSE, FASTING; Value: 89; Range: 70-105; Units: MG/DL; Status: F Test: BLOOD UREA NITROGEN; Value: 8; Range: 7-18; Units: MG/DL; Status: F Test: CREATININE FOR GFR; Value: 0.89; Range: 0.70-1.30; Units: MG/DL; Status: F Test: SODIUM LEVEL; Value: 143; Range: 136-145; Units: MEQ/L; Status: F Test: POTASSIUM SERUM; Value: 4.0; Range: 3.5-5.1; Units: MEQ/L; Status: F Test: CHLORIDE LEVEL; Value: 105; Range: 98-107; Units: MEQ/L; Status: F Test: CARBON DIOXIDE LEVEL; Value: 30; Range: 21-32; Units: MEQ/L; Status: F Test: ANION GAP; Value: 8; Range: 8-16; Units: MEQ/L; Status: F Test: CALCIUM LEVEL; Value: 9.4; Range: 8.5-10.1; Units: MG/DL; Status: F Lab Order: Complete Blood Count; [facility] 05/22/16 14:42 Test: WHITE BLOOD COUNT; Value: 10.6; Range: 4.0-10.0; Abnormal: Above high normal; Units: K/mm3; Status: F Test: RED BLOOD COUNT; Value: 4.79; Range: 4.30-6.10; Units: M/mm3; Status: F Test: HEMOGLOBIN; Value: 14.5; Range: 14.0-18.0; Units: g/dl; Status: F Test: HEMATOCRIT; Value: 44.6; Range: 42.0-52.0; Units: %; Status: F Test: MEAN CORPUSCULAR VOLUME; Value: 92.9; Range: 80.0-96.0; Units: fl; Status: F Test: MEAN CORPUSCULAR HEMOGLOBIN; Value: 30.3; Range: 27.0-33.0; Units: pg; Status: F Test: MEAN CORPUSCULAR HGB CONC; Value: 32.6; Range: 32.0-36.5; Units: g/dl; Status: F Test: RED CELL DISTRIBUTION WIDTH; Value: 11.9; Range: 11.5-14.5; Units: %; Status: F Test: PLATELET COUNT, AUTOMATED; Value: 277; Range: 150-450; Units: k/mm3; Status: F Lab Order: Drug Eval Toxicology ED Only; SPEC'M 05/22/16 14:42 Test: AMPHETAMINES LEVEL URINE; Value: NEGATIVE; Range: NEGATIVE; Status: F Test: BARBITURATES URINE; Value: NEGATIVE; Range: NEGATIVE; Status: F Test: BENZODIAZEPINES URINE; Value: NEGATIVE; Range: NEGATIVE; Status: F Test: CANNABINOIDS URINE; Value: POSITIVE; Range: NEGATIVE; Abnormal: Above high normal; Status: F Test: COCAINE METABOLITE URINE; Value: NEGATIVE; Range: NEGATIVE; Status: F Test: METHADONE URINE; Value: NEGATIVE; Range: NEGATIVE; Status: F Test: OPIATES URINE; Value: NEGATIVE; Range: NEGATIVE; Status: F Test: TRICYCLIC ANTIDEPRESS URINE; Value: NEGATIVE; Range: NEGATIVE; Status: F Test Note: ; FALSE POSITIVE RESULTS CAN BE CAUSED BY THE USE OF PANTOPRAZOLE (PROTONIX). Lab Order: Ethyl Alcohol (ethanol); SPEC'M 05/22/16 14:42 Test: ETHYL ALCOHOL (ETHANOL); Value: < 0.003; Range: 0.000-0.010; Units: %; Status: F Lab Order: Liver Profile; SPEC'M 05/22/16 14:42 Test: AST/SGOT; Value: 12; Range: 15-37; Abnormal: Below low normal; Units: U/L; Status: F Test: ALT/SGPT; Value: 17; Range: 12-78; Units: U/L; Status: F Test: ALKALINE PHOSPHATASE; Value: 94; Range: 45-117; Units: U/L; Status: F Test: BILIRUBIN,TOTAL; Value: 0.5; Range: 0.2-1.0; Units: MG/DL; Status: F Test: BILIRUBIN,DIRECT; Value: 0.2; Range: 0.0-0.2; Units: MG/DL; Status: F Test: TOTAL PROTEIN; Value: 7.9; Range: 6.4-8.2; Units: GM/DL; Status: F Test: ALBUMIN; Value: 4.8; Range: 3.2-5.2; Units: GM/DL; Status: F Test: ALBUMIN/GLOBULIN RATIO; Value: 1.55; Range: 1.00-1.93; Status: F Lab Order: Salicylate Level; SPEC'M 05/22/16 14:42 Test: SALICYLATE LEVEL; Value: 1.8; Range: 5.0-30.0; Abnormal: Below low normal; Units: MG/DL; Status: F Lab Order: Thyroid Stimulating Hormone; SPEC'M 05/22/16 14:42 Test: THYROID STIMULATING HORMONE; Value: 0.823; Range: 0.463-3.98; Units: uIU/ML; Status: F Outcome: 05/22 18:20 Decision to Hospitalize by Provider. jane 20:12 Discharge Assessment: Patient awake, alert and oriented x 3. No cognitive and/or rw1 functional deficits noted. Patient verbalized understanding of disposition instructions. patient administered narcotics - yes. Patient was admitted to the hospital or transferred to another facility. The following High Risk Discharge criteria are identified: Admitted to Psych accompanied by tech, via wheelchair, with chart. Condition: stable. No special radiology studies were completed. 20:14 Patient left the ED. rw1 Signatures: Nate Cabrales, RN RN Josue Nino, PSA PSA ac Phuc Andrews, PSA PSA Marcia Lanier, PSA PSA ms Sruthi Lazcano, Joaquín Reg tracie Emery, Slava Justin,MEDICAL TRANSCRIPTION MEDICAL TRANSCRIPTION rw1 Jeremías Munoz Lisa, PARING MACHINE OPERATOR PARING MACHINE OPERATOR Thao Kebede RN RN jjr Dickerson, Laura, RN RN ld5 Osmin Solano1 Marolf, Elvia Jay dpm, Marlynn mm15 Meg GloverRN RN ead Corrections: (The following items were deleted from the chart) 18:48 18:25 Narrative: Pt presented after being seen by Dr. Moulton in [facility]. Pt was ac screaming and crying while at the doctor's office, was transported by police as Dr. Moulton did not feel pt's mother was safe riding with pt in her car. Pt states he can't sleep because he wakes up at 0230 every morning feeling like he has "a blowdryer blowing in my face", has to open window so he can get fresh air. Pt reports frequent daily panic attacks. Pt reports falling and breaking a rib around [place], started abusing opiates at that time. PT is negative for opiates currently, admits to abusing them recently. Pt also admits to smoking marijuana, has been haranguing his mother to give him money for marijuana. Pt, per mother, has become more violent toward her and his father to the ac Chart Complete MTDD
--- NOTE | 2016-05-24 21:15 | EDDOCDS ---
Physician Documentation [facility] Name: Donato Bacon Age: 21 yrs Sex: Male : 1995 Arrival Date: 05/22/2016 Time: 13:02 Bed U5 Private MD: Disposition: 05/22 18:20 Critical Care: Critical care not applicable. le Disposition: 05/22/16 18:20 Hospitalization ordered by Chauncey Rashid for Inpatient Admission. Preliminary diagnosis is Acute stress reaction. - Bed requested for Admit. - Status is Inpatient Admission. rw1 - Condition is Stable. - Problem is an acute exacerbation. - Symptoms are unchanged. Historical: - Allergies: no known allergies; - Home Meds: 1. omeprazole 40 mg Oral cpDR 1 cap once daily 2. loratadine 10 mg Oral tab 1 tab once daily - PMHx: Anxiety; GERD; Seasonal Allergies; - PSHx: none; - Social history: Smoking status: Patient states was never smoker of tobacco. No barriers to communication noted, The patient speaks fluent Latvian. - Family history: Not pertinent. - : The pt / caregiver states he / she is not on anticoagulants. Home medication list is obtained from the patient. - Exposure Risk Screening:: None identified. Vital Signs: 13:16 BP 157 / 86; Pulse 65; Resp 18; Temp 96.8(T); Pulse Ox 100% on R/A; Weight 72.57 kg / sew 159.99 lbs (R); Height 5 ft. 11 in. (180.34 cm) (R); 16:55 BP 141 / 72; Pulse 61; Resp 16; Temp 97; Pulse Ox 100% on R/A; Pain 0/10; ld5 20:12 BP 145 / 84; Pulse 74; Resp 16; Temp 96.9(O); Pulse Ox 98% on R/A; Pain 0/10; rw1 13:16 Body Mass Index 22.32 (72.57 kg, 180.34 cm) sew MDM: 13:44 Consult PFS/PSA/Children'S Aide ordered. le 13:44 Consult PFS/PSA/Children'S Aide: Patient's case requires discussion with on-call le Psychiatrist ordered. 13:44 PSA/PFS to call Nursing Divisional Storekeeper, to enter patient data on [place] Safe Act if patient le involuntarily admitted or transferred for SI or HI ordered. 13:44 Confirm accurate psychiatric medication list and times of last dosage ordered. le 13:44 Detain Pt Until Medically/PFS Cleared ordered. le 13:45 ALPRAZolam Tablet 1 mg PO once ordered. le 13:45 Acetaminophen Level Ordered. EDMS 13:45 Basic Metabolic Profile Ordered. EDMS 13:45 Complete Blood Count Ordered. EDMS 13:45 Drug Eval Toxicology ED Only Ordered. EDMS 13:45 Ethyl Alcohol (ethanol) Ordered. EDMS 13:45 Liver Profile Ordered. EDMS 13:45 Salicylate Level Ordered. EDMS 13:45 Thyroid Stimulating Hormone Ordered. EDMS 14:54 Consult PFS/PSA/Children'S Aide complete. bcj 15:47 Acetaminophen Level Reviewed. le 15:47 Complete Blood Count Reviewed. le 15:47 Drug Eval Toxicology ED Only Reviewed. le 15:47 Liver Profile Reviewed. le 15:47 Salicylate Level Reviewed. le 15:47 Basic Metabolic Profile Reviewed. le 15:47 Ethyl Alcohol (ethanol) Reviewed. le 15:47 Thyroid Stimulating Hormone Reviewed. le 15:48 The patient has been medically cleared for psychiatric evaluation, admission and/or le transfer. 16:06 Financial registration complete. zo 16:18 [facility] [place] Agreement was scanned into [employer] and attached to record. zo 16:27 REGULAR DIET PLASTIC SANDOVAL+DIET ordered. EDMS 17:18 Admit to [facility]: ordered. EDMS 18:12 [facility] Legal paperwork was scanned into [employer] and attached to record. ms 18:18 ALPRAZolam Tablet 1 mg PO once ordered. le 19:00 Consult PFS/PSA/Children'S Aide: Patient's case requires discussion with on-call ms Psychiatrist complete. 19:00 PSA/PFS to call Nursing Divisional Storekeeper, to enter patient data [place] Safe Act if patient ms involuntarily admitted or transferred for SI or HI complete. 20:10 [facility] Legal paperwork was scanned into [employer] and attached to record. ms 20:11 [facility] Legal paperwork was scanned into [employer] and attached to record. ms 05/23 10:33 T-Sheet-- Draft Copy was scanned into [employer] and attached to record. mm15 Administered Medications: 05/22 13:59 Drug: ALPRAZolam 1 mg [alprazolam 0.25 mg tablet (4 tabs)] Route: PO; ead 19:59 Follow up: Response: No Adverse Reaction rw1 18:29 Drug: ALPRAZolam 1 mg [alprazolam 0.25 mg tablet (4 tabs)] Route: PO; ld5 19:58 Follow up: Response: No Adverse Reaction rw1 Signatures: Dispatcher [employer] EDNate Robertson, RN RN bcj Anibal, Marcia, PSA PSA ms Raghav,Slava,CURLING MACHINE OPERATOR CURLING MACHINE OPERATOR rw1 Jeremías Munoz Lisa, TOOL KEEPER Thao Odom RN RN Kathryn Mann mm15 Wendy Bustos RN ld5 Meg Glover RN ead The chart was reviewed and I authenticate all verbal orders and agree with the evaluation and treatment provided.Attachments: 16:18 [facility] Payment Agreement zo 05/23 10:33 T-Sheet-- Draft Copy mm15 Chart Complete MTDD
[2016-05-24] MEDS: traZODone 100 MG TAB PO SCH (22:31)
[2016-05-25 06:29] VITALS: BP 129/59
[2016-05-25] MEDS: CitaloPRAM (CeleXA) 20 MG TAB PO SCH (08:25)
[2016-05-25] MEDS: OMEPRAZOLE 20 MG CAP PO SCH (08:25)
[2016-05-25] MEDS: hydrOXYzine 50 MG TAB PO PRN ×2 (08:25→14:32)
[2016-05-25] MEDS: LORATADINE 10 MG TAB PO SCH (08:26)
[2016-05-25] MEDS: ACETAMINOPHEN TAB 650MG DOSE (2X325MG) PO PRN ×2 (11:44→18:12)
--- NOTE | 2016-05-25 18:02 | IPNPDOC ---
[facility] Progress Note Progress Note DATE OF SERVICE: 05/25/16 Today this provider is taking over patient's care; this is my first contact with patient. Subjective: Patient reports this episode of intensifying depression and anxiety and associated self-sabotaging behaviors of abusing opioid tablets began with the breakup with his GF, a 6 year long relationship. He reports being especially upset knowing "the demetrio who stole my GF". Patient reports no hx of suicide attempt. He reports his first cousin; "like a brother", committed suicide by over dose. Patient reports via IV Heroin. Patient reports only abuse of opioid tablets, no hx of IVDU. Patient reports last taking 2-3, Percocet 5mg tabs prior to this admission. Patient reports improved depressive symptoms since admission. He reports benefit from groups and reports reflecting on his recent behaviors and plans to use the insights and coping skills gained from this admission in future similar life situations. Patient hopes to enter a rehab program. He reports being "disgusted" that he's allowed himself to become addicted to opioids as they killed his cousin and are destroying his life. He is appropriate in behaviors and statements; no signs of psychosis reported or noted. He denied SI/HI today and AH/VH. Objective: VITAL SIGNS: See below. NEW TEST RESULTS: None CURRENT MEDICATIONS: See below. MENTAL STATUS EXAMINATION: Patient is a 21 year-old male who appears her stated age. Patient calm and cooperative in behavior. Patient is in NAD. Speech: Is RRR and spontaneous. Language skills are intact. Thought processes: linear and GD; Thought content: reflecting on his recent self sabotaging behaviors; Description of abnormal or psychotic thoughts: no paranoia expressed , no AH/VH; Judgment:Fair; Insight: Poor to Fair; Orientation to time, place and person. Recent and remote memory: Immediate, short-term and long-term memory is intact. Attention span and concentration: Good Language: Normal. Fund of knowledge: Fair Mood: depressed/anxious Affect: depressed. SI denies. HI denies Assessment: Depressive d/o, unspecified Opioid use d/o, severe Plan: ----- -Continue Celexa 20mg po qhs for depression and anxiety; current dose displaying effectiveness. -Taper Librium from 10mg po TID to 5mg po TID then OFF for mx of opioid w/d symptoms. Estimated date of discharge: 05/28/16 TIME SPENT: 30 minutes. Vital Signs Vital Signs Date Time Temp Pulse Resp B/P Pulse Ox O2 Delivery O2 Flow Rate FiO2 05/25/16 06:29 96.4 71 20 129/59 05/22/16 20:30 96 Room Air Current Medications Current Medications Medications (Trade) Dose Ordered Sig/Lilibeth Route PRN Reason Start Time Stop Time Status Last Admin Dose Admin Acetaminophen (Tylenol Tab) 650 mg Q6HP PRN PO HEADACHE or DISCOMFORT 05/22/16 23:00 06/21/16 22:59 05/25/16 11:44 Al Hydrox/Mg Hydrox/Simethicone (Mylanta) 30 ml Q4HP PRN PO HEARTBURN/INDIGESTION 05/22/16 23:00 06/21/16 22:59 Chlordiazepoxide (Librium) 10 mg TID PO 05/23/16 09:00 05/30/16 08:59 05/25/16 16:00 Citalopram Hydrobromide (CeleXA) 20 mg QAM PO 05/24/16 09:00 06/23/16 08:59 05/25/16 08:25 Home Med (Med Rec Complete!) ASDIRECTED XX 05/22/16 18:15 05/22/16 18:54 DC Hydroxyzine HCl (Atarax) 50 mg Q6HP PRN PO ANXIETY 05/22/16 23:00 06/21/16 22:59 05/25/16 14:32 Loratadine (Claritin) 10 mg DAILY PO 05/23/16 09:00 06/22/16 08:59 05/25/16 08:26 Magnesium Hydroxide (Milk Of Magnesia) 30 ml DAILYPRN PRN PO CONSTIPATION 05/22/16 23:00 06/21/16 22:59 Omeprazole (PriLOSEC) 20 mg DAILY PO 05/23/16 09:00 06/22/16 08:59 05/25/16 08:25 Trazodone HCl (Desyrel) 50 mg QHSP PRN PO INSOMNIA 05/22/16 23:00 05/23/16 11:52 DC 05/22/16 23:29 Trazodone HCl (Desyrel) 100 mg QHS PO 05/23/16 21:00 06/22/16 20:59 05/24/16 22:31 Allergies Coded Allergies: Dog Dander (Unverified Allergy, Mild, 05/23/09) Dust (Unverified Allergy, Mild, 05/23/09) Grass (Unverified Allergy, Mild, 05/23/09) Molds & Smuts (Unverified Allergy, Mild, 07/20/12) ERUM MCGRAW MD May 25, 2016 18:02 Dust (Unverified Allergy, Mild, 05/23/09) Grass (Unverified Allergy, Mild, 05/23/09) Molds & Smuts (Unverified Allergy, Mild, 07/20/12) ERUM MCGRAW MD May 25, 2016 18:02 ERUM MCGRAW MD May 25, 2016 18:02 ERUM MCGRAW MD May 25, 2016 18:02
[2016-05-25 18:15] VITALS: BP 121/72
[2016-05-25] MEDS: traZODone 100 MG TAB PO SCH (20:37)
[2016-05-26 06:22] VITALS: BP 138/67
[2016-05-26] MEDS: hydrOXYzine 50 MG TAB PO PRN ×2 (08:16→14:32)
[2016-05-26] MEDS: OMEPRAZOLE 20 MG CAP PO SCH (08:17)
[2016-05-26] MEDS: CitaloPRAM (CeleXA) 20 MG TAB PO SCH (08:17)
[2016-05-26] MEDS: LORATADINE 10 MG TAB PO SCH (08:17)
[2016-05-26] MEDS: ACETAMINOPHEN TAB 650MG DOSE (2X325MG) PO PRN (21:34)
[2016-05-26] MEDS: traZODone 100 MG TAB PO SCH (21:34)
[2016-05-26 21:50] VITALS: BP 134/82
--- NOTE | 2016-05-26 23:07 | IPNPDOC ---
[facility] Progress Note Progress Note DATE OF SERVICE: 05/26/16 Subjective: Patient reports gaining and planing to implement insights and coping skills he continues to gain from his admission. Patient reports med compliance w/o noticeable s/e'd. He reports continued improvement in mood on current dose of Celexa. Patient hopes to enter an outpt SATP(substance abuse treatment program) upon discharge. He is appropriate in behaviors and statements; no signs of psychosis reported or noted. He again denied SI/HI today and AH/VH. Objective: VITAL SIGNS: See below. NEW TEST RESULTS: None CURRENT MEDICATIONS: See below. MENTAL STATUS EXAMINATION: Patient is a 21 year-old male who appears her stated age. Patient calm and cooperative in behavior. Patient is in NAD. Speech: Is RRR and spontaneous. Language skills are intact. Thought processes: linear and GD; Thought content: reflecting on his recent self sabotaging behaviors. Engaged in working to stay sober by entering an outpt [facility] for opioid use d/o symptoms.; Description of abnormal or psychotic thoughts: no paranoia expressed, no AH/VH; Judgment:Fair; Insight: Fair; Orientation to time , place and person. Recent and remote memory: Immediate, short-term and long- term memory is intact. Attention span and concentration: Good Language: Normal. Fund of knowledge: Fair Mood: depressed/anxious Affect: depressed. SI denies. HI denies Assessment: Depressive d/o, unspecified Opioid use d/o, severe Plan: ----- -Continue Celexa 20mg po qhs for depression and anxiety; current dose displaying effectiveness. -Continue Tapering of Librium at 5mg po TID then OFF for mx of opioid w/d symptoms. -Patient amenable to pursue and engage in outpt [facility]ATP for opioid use d/o. Estimated date of discharge: 05/27/16 TIME SPENT: 30 minutes. H Vital Signs Vital Signs Date Time Temp Pulse Resp B/P Pulse Ox O2 Delivery O2 Flow Rate FiO2 05/26/16 21:50 97.3 82 16 134/82 05/22/16 20:30 96 Room Air Current Medications Current Medications Medications (Trade) Dose Ordered Sig/Lilibeth Route PRN Reason Start Time Stop Time Status Last Admin Dose Admin Acetaminophen (Tylenol Tab) 650 mg Q6HP PRN PO HEADACHE or DISCOMFORT 05/22/16 23:00 06/21/16 22:59 05/26/16 21:34 Al Hydrox/Mg Hydrox/Simethicone (Mylanta) 30 ml Q4HP PRN PO HEARTBURN/INDIGESTION 05/22/16 23:00 06/21/16 22:59 Chlordiazepoxide (Librium) 5 mg TID PO 05/26/16 09:00 06/02/16 08:59 05/26/16 20:08 Chlordiazepoxide (Librium) 10 mg TID PO 05/23/16 09:00 05/26/16 07:00 DC 05/25/16 20:37 Citalopram Hydrobromide (CeleXA) 20 mg QAM PO 05/24/16 09:00 06/23/16 08:59 05/26/16 08:17 Home Med (Med Rec Complete!) ASDIRECTED XX 05/22/16 18:15 05/22/16 18:54 DC Hydroxyzine HCl (Atarax) 50 mg Q6HP PRN PO ANXIETY 05/22/16 23:00 06/21/16 22:59 05/26/16 14:32 Loratadine (Claritin) 10 mg DAILY PO 05/23/16 09:00 06/22/16 08:59 05/26/16 08:17 Magnesium Hydroxide (Milk Of Magnesia) 30 ml DAILYPRN PRN PO CONSTIPATION 05/22/16 23:00 06/21/16 22:59 Omeprazole (PriLOSEC) 20 mg DAILY PO 05/23/16 09:00 06/22/16 08:59 05/26/16 08:17 Trazodone HCl (Desyrel) 50 mg QHSP PRN PO INSOMNIA 05/22/16 23:00 05/23/16 11:52 DC 05/22/16 23:29 Trazodone HCl (Desyrel) 100 mg QHS PO 05/23/16 21:00 06/22/16 20:59 05/26/16 21:34 Allergies Coded Allergies: Dog Dander (Unverified Allergy, Mild, 10) Dust (Unverified Allergy, Mild, 05/23/09) Grass (Unverified Allergy, Mild, 05/23/09) Molds & Smuts (Unverified Allergy, Mild, 07/20/12) ERUM MCGRAW MD May 26, 2016 23:07
[2016-05-27 06:35] VITALS: BP 106/60
[2016-05-27] MEDS: LORATADINE 10 MG TAB PO SCH (08:03)
[2016-05-27] MEDS: CitaloPRAM (CeleXA) 20 MG TAB PO SCH (08:03)
[2016-05-27] MEDS: OMEPRAZOLE 20 MG CAP PO SCH (08:03)
--- NOTE | 2016-05-27 09:38 | DS.PDOC ---
[facility] Discharge Summary Discharge Summary DATE OF ADMISSION: May 22, 2016 at 20:27 DATE OF DISCHARGE: 05/27/2016 DISCHARGE DIAGNOSES: Depressive d/o, unspecified Opioid use d/o, severe REASON FOR ADMISSION: HISTORY OF THE PRESENT ILLNESS: Patient is A 21-year-old male without significant psychiatric problems, admitted to our unit on a 9.39 legal status. According to the chart, patient was referred to our emergency department by Dr. Christopher at [facility]. Patient was transported in an ambulance, since Dr. Christopher felt his mother was not safe riding in the car with the patient. Patient reported he has constant panic attacks and has to open the window to be able to get fresh air. Patient reports feeling depressed, hopeless, helpless. Reports suicidal and homicidal ideation towards his mother, very poor concentration, insomnia. Patient was agitated, losing behavioral control during his evaluation with Dr. Christopher at [facility]. He was very tearful. During the interview today, patient has admitted the above symptoms, and during the evaluation, patient stated that he broke his rib and as a consequence, he was treated with pain killers, and started abusing them. Patient admits that he is now buying "Percocet in the street." Patient is also abusing marijuana, says that he is trying to cut down on the amount he uses, and lately has been down to three or four joints a day. During the interview, patient has very poor eye contact. He is depressed, anxious, labile, and tearful. There is no evidence of psychotic symptoms. No auditory or visual hallucinations or delusions. Patient confronts continuous panic attacks and has poor insight of how to treat his psychiatric and chemical dependency problems. HOSPITALIZATION COURSE: Patient admitted to the inpatient mental health unit. Patient admitted with worsening depressive symptoms in the context of opioid, pain pill , use d/o severe symptoms. Patient also experiencing more frequent and intense panic attacks. Patient reported underlying stressor being having his GF of 6yrs "stolen by my best friend". He reported benefit from groups and reports reflecting on his recent behaviors and plans to use the insights and coping skills gained from this admission in future similar life situations. Patient hopes to enter an outpt. rehab program. He reports being "disgusted" that he's allowed himself to become addicted to opioids as they killed his cousin and are destroying his life. He is appropriate in behaviors and statements; no signs of psychosis reported or noted. 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 Patient's mood improved over the course of the admission. On day of discharge patient denied SI and HI. He was medication compliant and he reported no medication side effects. Patient very social on the unit and active in groups. Sleep and appetite returned within normal limits. Patient will return to his home driven by his mom. Outpatient mental healthcare and PCP follow-up appointments made by product planner.] MENTAL STATUS EXAMINATION on discharge: Patient is a 21-year-old male who appears stated age, dressed in hospital attire, in no acute distress Speech: Is regular rate and rhythm, spontaneous Thought processes: Linear, Goal directed. Thought content: very appreciative of insights and coping skills learned in groups and throughout admission Description of abnormal or psychotic thoughts: No perceptual issues noted or reported. Judgment: fair. Insight: fair Orientation to time, place and person. Recent and remote memory: Intact. Immediate short-term and long-term memory is: intact. Attention span and concentration: fair. Language: Normal. Fund of knowledge: good. Mood: Euthymic Affect: Bright Consultants: None Labs: Unremarkable all within normal limits MEDICATIONS ON DISCHARGE: - Continue Celexa 20mg po qhs for depression and anxiety; current dose displaying effectiveness. - Continue Trazodone 100mg po qhs for insomnia. PLAN/FOLLOWUP ARRANGEMENTS: Patient has mental health care and PCP follow-up appointments within 14 days of this discharge. Appointments arranged by product planner. The amount of time spent in the coordination of care for this patient was approximately 60 minutes. Vital Signs Vital Sign - Last 24 Hours 05/26/16 05/27/16 21:50 06:35 Temp 97.3 96.5 Pulse 82 63 Resp 16 16 B/P 134/82 106/60 Medications Scheduled Citalopram Hydrobromide (Celexa) 20 Mg Tab #7 20 MG PO QAM depression / anxiety Omeprazole (Omeprazole) 40 Mg Cap 40 MG PO DAILY GERD (Reported) Trazodone HCl (Trazodone HCl) 100 Mg Tab #7 100 MG PO QHS insomnia Scheduled PRN Loratadine (Loratadine) 10 Mg Tab 10 MG PO DAILY PRN PRN ALLERGIES (Reported) Allergies Coded Allergies: Dog Dander (Unverified Allergy, Mild, 05/23/09) Dust (Unverified Allergy, Mild, 05/23/09) Grass (Unverified Allergy, Mild, 05/23/09) Molds & Smuts (Unverified Allergy, Mild, 07/20/12) ERUM MCGRAW MD May 27, 2016 09:38
[2016-05-27] MEDS ORDERED: CELE20TA PO (09:54)
[2016-05-27] MEDS ORDERED: TRAZ10TA PO (10:44)
== END 2016-05-27 11:50 | disposition home or self-care (01) | DRG 881 ==
LOC: M ED 13:02 → M PSY 20:27
PROVIDERS: ADMIT Psychiatry & Neurology Psychiatry; ATTEND Psychiatry & Neurology Psychiatry
DX: F32.9 Major depressive disorder, single episode, unspecified (principal); R45.851 Suicidal ideations; F11.24 Opioid dependence with opioid-induced mood disorder; R45.850 Homicidal ideations; K21.9 Gastro-esophageal reflux disease without esophagitis; J30.81 Allergic rhinitis due to animal (cat) (dog) hair and dander; J30.89 Other allergic rhinitis; J30.1 Allergic rhinitis due to pollen; Z79.899 Other long term (current) drug therapy

== ENCOUNTER 2016-07-16 12:38 | Emergency (ER) | payer MEDICAID, OTHER ==
[~2016-07-16] VITALS: Ht 180.3 cm; Wt 72.6 kg
[~2016-07-16 12:38] MED LIST changes: +CELE20TA PO; +TRAZ10TA PO
[2016-07-16 12:39] VITALS: BP 135/83
== END 2016-07-16 15:25 | disposition home or self-care (01) ==
LOC: M ED 14:59
DX: F41.9 Anxiety disorder, unspecified (principal); Z79.899 Other long term (current) drug therapy; J30.89 Other allergic rhinitis

== ENCOUNTER 2016-10-16 15:15 | Emergency (ER) | payer OTHER ==
[~2016-10-16] VITALS: Ht 177.8 cm; Wt 72.6 kg
[~2016-10-16 15:15] MED LIST changes: +AZIT-12 PO; -AZIT250T3 PO; -NAPR250T2 PO; +NAPR250T4 PO; +PERC5TAB12 PO; -PERC5TAB6 PO
[2016-10-16] MEDS ORDERED: HYDR50TA70 PO (15:40)
[2016-10-16] MEDS ORDERED: VENL75CA47 PO (15:40)
[2016-10-16] MEDS ORDERED: CLON-412 PO (15:40)
[2016-10-16] MEDS ORDERED: methylPREDNISolone INJ 125 MG/2 ML VIAL (J2930) IM ONE (16:30)
[2016-10-16] MEDS ORDERED: NAPR500T PO (17:42)
[2016-10-16] MEDS ORDERED: PERCTAB2 PO (17:42)
[2016-10-16 17:44] VITALS: BP 113/67
[2016-10-16] MEDS ORDERED: SKEL800T97 PO (18:06)
--- NOTE | 2016-10-16 18:36 | ED PDOC ---
Post-Departure Follow-Up PT'S MOTHER CAME TO PROVIDER'S DESK MULTIPLE TIMES ASKING FOR MEDICATIONS FOR THE PT, "WHAT ARE YOU GIVING HIM FOR PAIN?", "CAN HE HAVE SOME HYDROCODONE OR SOMETHING BECAUSE I DON'T THINK THESE MEDS ARE GOING TO WORK FOR HIM AND I DON' T WANT TO BE BACK IN HERE THIS WEEKEND." ADVISED THAT NARCOTICS ARE NOT INDICATED FOR THIS BACK PAIN AND THAT HE NEEDS TO TAKE THE MUSCLE RELAXER AND ANTI-INFLAMMATORIES FOR HIS PAIN. MOTHER VOICED UNDERSTANDING AND PT WAS D/CAngelica. KRISHNA DE LA VEGA PA-C Oct 16, 2016 18:36
== END 2016-10-16 18:20 | disposition home or self-care (01) ==
LOC: M ED 15:15
DX: S30.0XXA Contusion of lower back and pelvis, initial encounter (principal); W01.0XXA Fall on same level from slipping, tripping and stumbling without subsequent striking against object, initial encounter; Y92.017 Garden or yard in single-family (private) house as the place of occurrence of the external cause; Y93.89 Activity, other specified; Y99.8 Other external cause status; J30.89 Other allergic rhinitis; F17.200 Nicotine dependence, unspecified, uncomplicated; Z79.899 Other long term (current) drug therapy

== ENCOUNTER → 2016-10-21 | Outpatient (REF) | payer MEDICAID, OTHER ==
[~2016-10-21] MED LIST changes: +BUSP10TA PO; +BUSP5TA PO; +CETI10TA PO; +CLON-412 PO; +GABA-279 PO; +GABA-282 PO; +HYDR50TA70 PO; +MELO15TA4 PO; +NAPR500T PO; +NICO21PAT TD; +PERCTAB2 PO; +PRED20TA; +PRED20TA PO; +QUET1TAB9 PO; +RISP0.5T21 PO; +SKEL800T97 PO; +VALI10TA; +VENL100T PO; +VENL150C43 PO; +VENL75CA47 PO; +ZANA4CAP PO
[2016-10-22 12:11] LABS: ADD MANUAL DIFFER YES; MEAN CORPUSCULAR HGB CONC 34.3 g/dl (32.0-36.5); MEAN CORPUSCULAR VOLUME 93.2 fl (80.0-96.0); PLATELET COUNT, AUTOMATED 258 k/mm3 (150-450); RED CELL DISTRIBUTION WIDTH 12.4 % (11.5-14.5); WHITE BLOOD COUNT 6.5 K/mm3 (4.0-10.0)
[2016-10-22 12:23] LABS: ALBUMIN 4.5 GM/DL (3.2-5.2); ALBUMIN/GLOBULIN RATIO 1.67 (1.00-1.93); ALKALINE PHOSPHATASE 69 U/L (45-117); ALT/SGPT 15 U/L (12-78); ANION GAP 7 MEQ/L (8-16); AST/SGOT 11 U/L (15-37); BILIRUBIN,TOTAL 0.3 MG/DL (0.2-1.0); BLOOD UREA NITROGEN 7 MG/DL (7-18); CALCIUM LEVEL 9.3 MG/DL (8.5-10.1); CARBON DIOXIDE LEVEL 31 MEQ/L (21-32); CHLORIDE LEVEL 102 MEQ/L (98-107); CREATININE FOR GFR 0.94 MG/DL (0.70-1.30); GLUCOSE, FASTING 67 MG/DL (70-105); POTASSIUM SERUM 4.1 MEQ/L (3.5-5.1); SODIUM LEVEL 140 MEQ/L (136-145); TOTAL PROTEIN 7.2 GM/DL (6.4-8.2)
[2016-10-22 14:03] LABS: BASOPHILS 1 % (0-4); EOSINOPHILS 2 % (0-5)
[2016-10-22 14:04] LABS: ANISOCYTOSIS 1+
[2016-10-30 14:27] LABS: SUMMARY SEE SEPARATE REPORT
== END ==
LOC: M LABDRAWC 11:33
PROVIDERS: ATTEND Nurse Practitioner Family
DX: F41.0 Panic disorder [episodic paroxysmal anxiety] (principal)

== ENCOUNTER 2016-10-31 10:49 | Inpatient (IN) | payer MEDICAID, OTHER ==
[~2016-10-31] VITALS: Ht 177.8 cm; Wt 60.5 kg
[~2016-10-31 10:49] MED LIST changes: -BUSP10TA PO; -BUSP5TA PO; -CETI10TA PO; -GABA-279 PO; -GABA-282 PO; -MELO15TA4 PO; -NICO21PAT TD; -PRED20TA; -PRED20TA PO; -QUET1TAB9 PO; -RISP0.5T21 PO; -VALI10TA; -VENL100T PO; -VENL150C43 PO; -ZANA4CAP PO
[2016-10-31] MEDS ORDERED: PRED20TA (11:00)
[2016-10-31] MEDS ORDERED: VALI10TA (11:00)
[2016-10-31] MEDS ORDERED: VENL100T PO (11:00)
[2016-10-31] MEDS ORDERED: NS 1,000 ML IV ONE ×2 (11:30→14:00)
[2016-10-31 11:33] LABS: MEAN CORPUSCULAR HEMOGLOBIN 31.8 pg (27.0-33.0); MEAN CORPUSCULAR HGB CONC 34.2 g/dl (32.0-36.5); MEAN CORPUSCULAR VOLUME 92.9 fl (80.0-96.0); RED CELL DISTRIBUTION WIDTH 12.7 % (11.5-14.5); WHITE BLOOD COUNT 17.1 K/mm3 (4.0-10.0)
[2016-10-31 11:54] LABS: METHADONE URINE NEGATIVE (NEGATIVE)
[2016-10-31 12:04] LABS: ALBUMIN 4.4 GM/DL (3.2-5.2); ALBUMIN/GLOBULIN RATIO 1.42 (1.00-1.93); ALKALINE PHOSPHATASE 58 U/L (45-117); ALT/SGPT 16 U/L (12-78); ANION GAP 6 MEQ/L (8-16); AST/SGOT 7 U/L (15-37); BILIRUBIN,DIRECT < 0.1 MG/DL (0.0-0.2); BILIRUBIN,TOTAL 0.3 MG/DL (0.2-1.0); BLOOD UREA NITROGEN 6 MG/DL (7-18); CALCIUM LEVEL 9.3 MG/DL (8.5-10.1); CARBON DIOXIDE LEVEL 30 MEQ/L (21-32); CHLORIDE LEVEL 104 MEQ/L (98-107); CREATININE FOR GFR 0.94 MG/DL (0.70-1.30); GLUCOSE, FASTING 102 MG/DL (70-105); POTASSIUM SERUM 3.7 MEQ/L (3.5-5.1); SODIUM LEVEL 140 MEQ/L (136-145); TOTAL PROTEIN 7.5 GM/DL (6.4-8.2)
[2016-10-31 14:59] LABS: BASO % 0.1 % (0.0-1.0); EOS # 0.1 K/mm3 (0.0-0.50); EOS % 0.8 % (0.0-3.0); LARGE UNSTAINED CELL % 0.3 % (0.0-4.0); LYMPH # 0.8 K/mm3 (1.5-6.5); LYMPH % 6.8 % (24.0-44.0); MEAN CORPUSCULAR HEMOGLOBIN 30.8 pg (27.0-33.0); MEAN CORPUSCULAR HGB CONC 32.6 g/dl (32.0-36.5); MEAN CORPUSCULAR VOLUME 94.3 fl (80.0-96.0); MONO # 0.3 K/mm3 (0.0-0.8); MONO % 2.9 % (0.0-5.0); NEUTROPHILS # 10.3 K/mm3 (1.8-7.7); NEUTROPHILS % 89.2 % (36.0-66.0); PLATELET COUNT, AUTOMATED 209 k/mm3 (150-450); WHITE BLOOD COUNT 11.5 K/mm3 (4.0-10.0)
--- NOTE | 2016-10-31 16:26 | ECGEPIP ---
Stationary ECG Study [facility] - ED Test Date: 2016-10-31 Pat Name: ANRDIA WOODY Department: Room: - Gender: M Napper Grinder: jeannette : 1995 Requested By: Carlie Castro Order Number: [id number] Reading MD: Carlie Castro Measurements Intervals [place] Rate: 84 P: 29 NC: 134 QRS: 55 QRSD: 83 T: 19 QT: 354 QTc: 420 Interpretive Statements SINUS RHYTHM WITH SINUS ARRHYTHMIA U WAVE NONSPECIFIC ST T WAVE CHANGES 04/10/16 - RATE INCREASED TO CONSIDER HYPOKALEMIA Electronically Signed On 10-31-2016 16:25:49 EDT by Carlie Castro
[2016-11-01] MEDS ORDERED: OMEPRAZOLE 20 MG CAP PO ONE (07:45)
[2016-11-01] MEDS ORDERED: VENLAFAXINE 37.5 MG TAB PO ONE ×2 (07:45)
[2016-11-01] MEDS ORDERED: NORCO, ANEXSIA 5/325MG TABLET (HYDROcodone/ACETAMINOPHEN) PO ONE (12:00)
[2016-11-01] MEDS ORDERED: VENL75CA47 PO (13:44)
[2016-11-01] MEDS ORDERED: VENL150C43 PO (13:44)
[2016-11-01] MEDS ORDERED: IBUPROFEN 600 MG TAB PO ONE (13:45)
[2016-11-01] MEDS ORDERED: LORATADINE 10 MG TAB PO ONE (17:30)
[2016-11-01] MEDS ORDERED: diphenhydrAMINE 50 MG CAP PO ONE (21:30)
[2016-11-01] MEDS ORDERED: diphenhydrAMINE 25 MG CAP As Ordered ONE (21:45)
[2016-11-02] MEDS ORDERED: LORATADINE 10 MG TAB PO ONE (08:30)
[2016-11-02] MEDS ORDERED: VENLAFAXINE **XR** 75MG CAPSULE PO ONE ×2 (08:30)
[2016-11-02] MEDS ORDERED: predniSONE 20 MG TAB PO ONE (08:30)
[2016-11-02] MEDS ORDERED: OMEPRAZOLE 20 MG CAP PO ONE (08:30)
[2016-11-02] MEDS: OMEPRAZOLE 20 MG CAP PO SCH (09:00)
[2016-11-02] MEDS ORDERED: NORCO, ANEXSIA 5/325MG TABLET (HYDROcodone/ACETAMINOPHEN) PO ONE (12:00)
[2016-11-02] MEDS ORDERED: MOM 30ML SUSPENSION UDC PO PRN (14:00)
[2016-11-02] MEDS ORDERED: MAALOX 30 ML SUSP *UDC PO PRN (14:00)
[2016-11-02] MEDS ORDERED: BUSP5TA PO (14:28)
[2016-11-02 14:36] VITALS: BP 136/84
[2016-11-02] MEDS: HALOPERIDOL 5 MG TAB PO PRN (15:40)
[2016-11-02] MEDS: predniSONE 20 MG TAB PO SCH ×2 (15:40→20:39)
[2016-11-02] MEDS: hydrOXYzine 50 MG TAB PO PRN ×2 (17:27→21:25)
[2016-11-02] MEDS ORDERED: clonazePAM 0.5 MG TAB PO PRN (18:45)
[2016-11-02] MEDS: OLANZapine 5 MG TAB PO PRN (18:48)
[2016-11-02] MEDS: traZODone 50 MG TAB PO PRN (20:39)
[2016-11-03 06:23] VITALS: BP 133/61
[2016-11-03] MEDS: predniSONE 20 MG TAB PO SCH ×3 (08:05→20:04)
[2016-11-03] MEDS: hydrOXYzine 50 MG TAB PO PRN ×2 (08:05→11:20)
[2016-11-03] MEDS: OMEPRAZOLE 20 MG CAP PO SCH (08:05)
[2016-11-03] MEDS: NICOTINE 21MG/24HR 1 EA TRANSDERMAL TD SCH (08:06)
[2016-11-03] MEDS ORDERED: VENLAFAXINE **XR** 75MG CAPSULE PO SCH (09:00)
[2016-11-03] MEDS ORDERED: VENLAFAXINE 37.5 MG TAB PO SCH ×2 (09:00)
--- NOTE | 2016-11-03 09:14 | HPEPDOC ---
Medical History and Physical Date of Admission Nov 02, 2016 at 13:51 History and Physical PCP: Dr Jones ATTENDING: Dr. Mike Dias HPI: 21[facility]M [facility], being medically examined today. No acute medical complaints today. Denies any fevers, chills, weakness, fatigue, DORADO, CP, SOB, cough, palpitations, abdominal pain, N/V /D or changes in bowel or bladder habits. PMHx: Anxiety Depression H/O substance use GERD Back pain, h/o fall. PSHX: [place] teeth extraction SOCHX: Resides in: [facility] Marital Status: single Kids: none Employment: [employer] Tobacco use: denies ETOH: denies Illicit Drugs: Marijuana 3 x per week IV Drug Use: Denies Tattoos done unprofessionally: Denies FAMHX: Mother: Alive, well Father: Alive, HTN Siblings: 1 sister Alive, anxiety Children: Alive, well Unexpected deaths due to medical reasons: None. ROS: As noted in HPI, otherwise 11pt ROS of systems reviewed and unremarkable. PE: GEN: 21yoM, appears stated age. Well-nourished, well developed. No acute distress. Alert and oriented x 3. Pleasant, interactive. HEENT: Normocephalic, atraumatic. Pupils are equal, round, and reactive to light. Extraocular movements are intact. No nystagmus appreciated. Sclera are nonicteric. Conjunctiva without injection. Nose midline. Nasal turbinates without bogginess. EACs both patent BL. TMs both visualized and puentes with good cone of light, no bulging or erythema. No facial asymmetry. Moist mucous membranes. Dentition fair. Pharynx pink and moist, no cobblestoning. Neck supple , trachea midline. No lymphadenopathy or thyromegaly appreciated. CHEST: Regular rate and rhythm, +S1, +S2 LUNGS: Clear to auscultation bilaterally. No wheezes, rales, or rhonchi. Breathing appears symmetric and easy. Patient is speaking in full sentences. No accessory muscle use. ABD: Round, soft, non-tender, non-distended. +Bowel sounds throughout. No rebound or guarding. No costovertebral angle tenderness. EXT: Pulses 2+ bilaterally dorsalis pedis and radial. No lower extremity edema appreciated. SKIN: [place], dry, warm. Capillary refill <2sec. No rashes. NEURO: Alert and oriented x 3. Cranial nerves III-XII are intact. No focal deficits appreciated. EK10/31/16 SINUS RHYTHM WITH SINUS ARRHYTHMIA U WAVE NONSPECIFIC ST T WAVE CHANGES A&P: 21yoM [facility] for unspecified depressive disorder, 1. Psych. Plan per Psychiatry. EKG on file. 2. Nicotine dependence. Patch available. 3. Borderline EKG. No cardiac signs or symptoms appreciated on exam, follow with PCP. 4. Follow up with PCP on discharge. 5. Substance use. Per psychiatry. 6. Back pain. Pt on short course of Prednisone. Continue Tylenol as needed. 7. Vitamin D Deficiency. 13.7 10/21/16. Add po supplement. 8. Leukocytosis. Possibly related to steroid use. Recheck CBC. Pt is afebrile, asymptomatic. 9. Abnormal TSH. Recheck TFT. 10. GERD. Conitnue Prilosec 40 mg daily. 11. Allergic rhinitis. Continue loratadine as needed. 12. Staff member Jd present throughout exam. Vital Signs Vital Signs Date Time Temp Pulse Resp B/P (MAP) Pulse Ox O2 Delivery O2 Flow Rate FiO2 11/03/16 06:23 98.8 62 18 133/61 (85) 11/02/16 13:49 100 11/02/16 05:08 Room Air Laboratory Data Labs 24H Item Value Date Time White Blood Count 11.5 K/mm3 H 10/31/16 1448 Red Blood Count 3.70 M/mm3 L 10/31/16 1448 Hemoglobin 11.4 g/dl L 10/31/16 1448 Hematocrit 34.9 % L 10/31/16 1448 Mean Corpuscular Volume 94.3 fl 10/31/16 1448 Mean Corpuscular Hemoglobin 30.8 pg 10/31/16 1448 Mean Corpuscular Hemoglobin Concent 32.6 g/dl 10/31/16 1448 Red Cell Distribution Width 13.0 % 10/31/16 1448 Platelet Count 209 k/mm3 10/31/16 1448 Sodium Level 140 MEQ/L 10/31/16 1112 Potassium Level 3.7 MEQ/L 10/31/16 1112 Chloride Level 104 MEQ/L 10/31/16 1112 Carbon Dioxide Level 30 MEQ/L 10/31/16 1112 Anion Gap 6 MEQ/L L 10/31/16 1112 Blood Urea Nitrogen 6 MG/DL L 10/31/16 1112 Creatinine 0.94 MG/DL 10/31/16 1112 Fasting Glucose 102 MG/DL 10/31/16 1112 Calcium Level 9.3 MG/DL 10/31/16 1112 Total Bilirubin 0.3 MG/DL 10/31/16 1112 Direct Bilirubin < 0.1 MG/DL 10/31/16 1112 Aspartate Amino Transf (AST/SGOT) 7 U/L L 10/31/16 1112 Alanine Aminotransferase (ALT/SGPT) 16 U/L 10/31/16 1112 Alkaline Phosphatase 58 U/L 10/31/16 1112 Total Protein 7.5 GM/DL 10/31/16 1112 Albumin 4.4 GM/DL 10/31/16 111 Albumin/Globulin Ratio 1.42 10/31/16 111 Thyroid Stimulating Hormone (TSH) 0.273 uIU/ML L 10/31/16 111 Salicylates Level 4.0 MG/DL L 10/31/16 1112 Urine Opiates Screen POSITIVE H 10/31/16 1115 Urine Methadone Screen NEGATIVE 10/31/16 1115 Acetaminophen Level < 2.0 UG/ML L 10/31/16 111 Urine Barbiturates Screen NEGATIVE 10/31/16 1115 Urine Phencyclidine Screen NEGATIVE 10/31/16 1115 Urine Amphetamines Screen NEGATIVE 10/31/16 1115 Urine Benzodiazepines Screen POSITIVE H 10/31/16 1115 Urine Cocaine Metabolite Screen POSITIVE H 10/31/16 1115 Urine Cannabinoids Screen POSITIVE H 10/31/16 1115 Ethyl Alcohol Level < 0.003 % 10/31/16 111 Home Medications Scheduled Buspirone HCl (Buspirone HCl) 5 Mg Tab, 5 MG PO BID for . CALLED PHARMACY Omeprazole (Omeprazole) 40 Mg Cap, 40 MG PO DAILY for GERD Venlafaxine HCl (Venlafaxine HCl ER) 75 Mg Capcr, 75 MG PO DAILY for . FOR 225mg DOSE CALLED PHARMACY Venlafaxine Hydrochloride (Venlafaxine HCl ER) 150 Mg Cap, 150 MG PO DAILY for . FOR 225mg DOSE CALLED PHARMACY Scheduled PRN Loratadine (Loratadine) 10 Mg Tab, 10 MG PO DAILY PRN for ALLERGIES Allergies Coded Allergies: Dust (Unverified Allergy, Mild, 05/23/09) Grass (Unverified Allergy, Mild, 05/23/09) Molds & Smuts (Unverified Allergy, Mild, 07/20/12) Letty Rivera Nov 03, 2016 09:14
[2016-11-03] MEDS: OLANZapine 5 MG TAB PO PRN ×3 (09:23→23:08)
[2016-11-03] MEDS ORDERED: LORATADINE 10 MG TAB PO PRN (09:30)
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
[2016-11-03] MEDS: HALOPERIDOL 5 MG TAB PO PRN (14:26)
[2016-11-03] MEDS: GABAPENTIN 100 MG CAP PO SCH ×2 (16:15→20:04)
[2016-11-03 18:00] VITALS: BP 138/88
[2016-11-03] MEDS: ACETAMINOPHEN TAB 650MG DOSE (2X325MG) PO PRN (20:05)
[2016-11-03] MEDS: traZODone 50 MG TAB PO PRN (21:12)
[2016-11-03 22:40] VITALS: BP 128/82
[2016-11-04 06:27] VITALS: BP 144/81
[2016-11-04 07:02] LABS: MEAN CORPUSCULAR HEMOGLOBIN 32.1 pg (27.0-33.0); MEAN CORPUSCULAR HGB CONC 34.6 g/dl (32.0-36.5); MEAN CORPUSCULAR VOLUME 92.8 fl (80.0-96.0); RED CELL DISTRIBUTION WIDTH 12.5 % (11.5-14.5); WHITE BLOOD COUNT 12.9 K/mm3 (4.0-10.0)
[2016-11-04 07:29] LABS: THYROXINE (T4) 9.3 UG/DL (6.0-11.6)
[2016-11-04] MEDS: GABAPENTIN 100 MG CAP PO SCH ×3 (08:03→20:14)
[2016-11-04] MEDS: VENLAFAXINE **XR** 75MG CAPSULE PO SCH ×2 (08:03→20:14)
[2016-11-04] MEDS: OMEPRAZOLE 20 MG CAP PO SCH (08:03)
[2016-11-04] MEDS: predniSONE 20 MG TAB PO SCH (08:03)
[2016-11-04] MEDS: NICOTINE 21MG/24HR 1 EA TRANSDERMAL TD SCH (08:04)
[2016-11-04] MEDS: ACETAMINOPHEN TAB 650MG DOSE (2X325MG) PO PRN ×3 (08:42→20:16)
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
[2016-11-04] MEDS: OLANZapine 5 MG TAB PO PRN ×2 (09:21→13:25)
[2016-11-04] MEDS: hydrOXYzine 50 MG TAB PO PRN ×2 (15:33→22:00)
[2016-11-04 18:02] VITALS: BP 148/90
[2016-11-04] MEDS: traZODone 50 MG TAB PO PRN (20:14)
[2016-11-05 06:25] VITALS: BP 126/67
[2016-11-05] MEDS: OMEPRAZOLE 20 MG CAP PO SCH (08:03)
[2016-11-05] MEDS: VENLAFAXINE **XR** 75MG CAPSULE PO SCH ×2 (08:03→20:31)
[2016-11-05] MEDS: hydrOXYzine 50 MG TAB PO PRN ×2 (08:03→18:01)
[2016-11-05] MEDS: ACETAMINOPHEN TAB 650MG DOSE (2X325MG) PO PRN ×3 (08:03→20:32)
[2016-11-05] MEDS: GABAPENTIN 100 MG CAP PO SCH ×3 (08:03→20:31)
--- NOTE | 2016-11-05 08:17 | IPNPDOC ---
Date Seen The patient was seen on 11/05/16. Progress Note HPI: 21yoM admitted to [facility] for unspecified depressive disorder, being medically examined today. No acute medical complaints today. Pt states his back pain is controlled with Tylenol as needed. Denies any fevers, chills, weakness, fatigue, DORADO, CP, SOB, cough, palpitations, abdominal pain, N/V/D or changes in bowel or bladder habits. PMHx: Anxiety Depression H/O substance use GERD Back pain, h/o fall. PSHX: [place] teeth extraction PE: GEN: 21yoM, appears stated age. Well-nourished, well developed. No acute distress. Alert and oriented x 3. Pleasant, interactive. HEENT: Normocephalic, atraumatic. Pupils are equal, round, and reactive to light. Extraocular movements are intact. No nystagmus appreciated. Sclera are nonicteric. Conjunctiva without injection. Nose midline. Nasal turbinates without bogginess. EACs both patent BL. TMs both visualized and puentes with good cone of light, no bulging or erythema. No facial asymmetry. Moist mucous membranes. Dentition fair. Pharynx pink and moist, no cobblestoning. Neck supple , trachea midline. No lymphadenopathy or thyromegaly appreciated. CHEST: Regular rate and rhythm, +S1, +S2 LUNGS: Clear to auscultation bilaterally. No wheezes, rales, or rhonchi. Breathing appears symmetric and easy. Patient is speaking in full sentences. No accessory muscle use. ABD: Round, soft, non-tender, non-distended. +Bowel sounds throughout. No rebound or guarding. No costovertebral angle tenderness. EXT: Pulses 2+ bilaterally dorsalis pedis and radial. No lower extremity edema appreciated. SKIN: [place], dry, warm. Capillary refill <2sec. No rashes. NEURO: Alert and oriented x 3. Cranial nerves III-XII are intact. No focal deficits appreciated. EK10/31/16 SINUS RHYTHM WITH SINUS ARRHYTHMIA U WAVE NONSPECIFIC ST T WAVE CHANGES XR LS Spine pending. A&P: 21yoM admitted to [facility] for unspecified depressive disorder, 1. Psych. Plan per Psychiatry. EKG on file. 2. Nicotine dependence. Patch available. 4. Follow up with PCP on discharge. 5. Substance use. Per psychiatry. 6. Back pain. Check XR LS spine. Continue Tylenol as needed. Consider pain mgmt if needed. 7. Vitamin D Deficiency. 13.7 10/21/16. Add po supplement. 8. Leukocytosis. Possibly related to steroid use. Pt is afebrile, asymptomatic. 9. Abnormal TSH. Check thyroid U/S. F/U with PCP at d/c. 10. GERD. Conitnue Prilosec 40 mg daily. 11. Allergic rhinitis. Continue loratadine as needed. VS, I&O, 24H, Fishbone Vital Signs/I&O Vital Signs Date Time Temp Pulse Resp B/P (MAP) Pulse Ox O2 Delivery O2 Flow Rate FiO2 11/05/16 06:25 97.9 60 18 126/67 (86) 11/02/16 13:49 100 11/02/16 05:08 Room Air Letty Rivera Nov 05, 2016 08:17
[2016-11-05] MEDS: NICOTINE 21MG/24HR 1 EA TRANSDERMAL TD SCH (09:00)
--- NOTE | 2016-11-05 14:32 | REP ---
LUMBAR SPINE, FIVE VIEWS: HISTORY: Back pain. There is no acute fracture. The intervertebral discs are normal in height. The facet joints are normal in appearance. There are 3 mm of retrolisthesis of L5 on S1. There is spina bifida occulta of S1. IMPRESSION: There is no acute fracture or subluxation. Signed by Alex Guerrero MD 11/05/2016 02:36 P
[2016-11-05] MEDS: cloNIDine 0.1 MG TAB PO PRN (14:35)
[2016-11-05 14:37] VITALS: BP 145/92
--- NOTE | 2016-11-05 17:06 | REP ---
THYROID ULTRASOUND: Real-time sonographic evaluation of the thyroid was performed. Right lobe measures 4.8 x 1.4 x 1.2 cm and left lobe 4.3 x 1.4 x 1.1 cm. There is a 3 mm cyst in the right lobe without other evidence of cystic or solid nodule bilaterally. IMPRESSION: Tiny cyst right lobe of the thyroid without other significant abnormality. Signed by Kemal Haji MD 11/05/2016 05:12 P
[2016-11-05 18:00] VITALS: BP 144/98
--- NOTE | 2016-11-05 18:23 | MHIPNPDOC ---
[facility] Progress Note Progress Note DATE OF SERVICE: 11/05/16 HISTORY OF THE PRESENT ILLNESS: Patient is a 21-year-old male who states after being involved in a physical altercation with the police last Wednesday night he took approximately 12 (ER report indicates 20 tablets) of 10 mg Valium tablets which had been prescribed the day before by an ER doctor for pinched nerve to back. Patient states ingestion of Valium was not a suicide attempt. 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 Patient states altercation with police was unprovoked, however, per ER report patient had indicated that the police were contacted after the betting agency counter clerk suspected patient was intoxicated. Patient was reportedly "hysterical/labile" in the ER. Patient has one prior psychiatric admission from 05/22-05/27/16 secondary to acute stress reaction which patient states stemmed from abusing Percocet he was reportedly given when he broke ribs. Per EMR, after being treated with Percocet patient began buying Percocet on the street. Cell Liner met with patient today to assess treatment progress on inpatient unit. Cell Liner reports improvement to symptoms of anxiety and depression, rates current anxiety level as 8/10, denies experiencing symptoms of depression, denies suicidal and homicidal ideation, denies auditory and visual hallucinations, denies urge to engage in self-injurious behavior. Patient informs chief underwriter the gabapentin is helping to control symptoms of anxiety, indicates he experiences a.m. anxiety, makes requests for a.m. dose increase. Patient has not needed to utilize Zyprexa PRN today, utilized hydroxyzine this morning with partial effect , continues to utilize trazodone for sleep, notes medication regimen is generally effective, states recent increase in Effexor is also helping to control symptoms of anxiety and depression, and denies medication side effects. Patient has been visible, attending groups, states he is sleeping well, reports some improvement to energy level and concentration focus. Cell Liner spoke with patient today at length regarding discharging to inpatient substance abuse treatment to which patient responded by stating, "I'll give it some thought." Patient presented with no signs of acute distress at time of interaction. I-Stop review completed 11/03/16 VITALS: See below NEW TEST RESULTS: 11/04/16 lab results indicate low HCT and TSH, PA is aware and addressing MEDICAL/SURGICAL HISTORY: GERD, back pain, history of fall. [place] teeth extraction. Patient reports history of fractured knee February,, and fractured rib March,. Patient reports is currently experiencing pinched nerve to back. Patient denies history of seizure, reports history of 2 concussions at age 9 and 17 for which he received treatment, LOC unknown. Patient indicates he experiences "muscle spasms which began years ago," indicates he has not been evaluated by PCM or neurologist. Labs on admission indicate elevated WBC, neut %, neut #, and low RBC, Hgb, HCT, lymph %, lymph #, anion gap, BUN, AST, and TSH Vitamin D deficiency, leukocytosis, patient is afebrile and asymptomatic. PA is aware and is addressing TSH leukocytosis and vitamin D deficiency UDS positive for opiates, benzodiazepines, cocaine, and cannabinoids 10/31/16 EKG sinus rhythm with sinus arrhythmia U-wave nonspecific ST-T wave changes. Patient is asymptomatic and clinical consultation has been sought with recommendation made for follow-up outpatient 11/05/16 x-ray of spine - no acute fracture or subluxation 11/05/16 thyroid ultrasound - tiny cyst right lobe of the thyroid without other significant abnormality, recommendation made by PA for follow-up with outpatient provider post discharge. CURRENT MEDICATIONS: See below MENTAL STATUS EXAMINATION: General appearance: Patient is a 21-year old male, who is engageable, remains evasive but is pleasant and cooperative, makes improved eye contact, exhibits adequate personal hygiene, is dressed in hospital clothing, appears stated age, ambulates with steady gait Speech: Of normal rate, rhythm, volume, spontaneous, coherent Thought processes: Linear, logical, goal-directed Thought content: Rational, logical, no tangentiality or paranoia noted. Abstract reasoning and computation: Appear intact Description of associations: Intact. Description of abnormal or psychotic thoughts: Denies suicidal or homicidal ideation, denies auditory or visual hallucinations, does not appear to be responding to internal stimuli, does not endorse bizarre or paranoid ideation, denies preoccupation with violence obsessions. Judgment: Poor. Insight: Poor, possibly showing signs of some improvement Orientation: A and O 3. Recent and remote memory: Appear intact. Attention span and concentration: Adequate. Fund of knowledge: Appears adequate. Mood: "Okay, I think I'm starting to feel little bit better. Patient appears less anxious and less depressed, no mood lability noted Affect: Blunted but brightens at times, congruent with mood. DIAGNOSES: Unspecified depressive disorder, polysubstance use disorder. Rule out substance-induced mood disorder, rule out major depressive disorder, rule out anxiety disorder. ASSESSMENT: Patient continues to adjust to unit, has been visible and participating in unit programming, has been observed engaging selectively with peers, has been in behavioral control and has been cooperative with staff. Patient reiterates today that recent overdose on Valium was not a suicide attempt, provides conflicting information as to quantity taken, minimizes events which led to current hospitalization, however, informs chief underwriter today he is considering participating in inpatient rehabilitation. Patient reports improvement to symptoms of depression and anxiety with current medication regimen and denies medication side effects, makes request for gabapentin dose increase in a.m. noting symptoms of anxiety are heightened at that time. Patient remains evasive, provides conflicting information, continues to minimize behavior and substance abuse, and continues to rationalize events which occurred prior to hospitalization. Patient denies symptoms of craving or withdrawal and is aware he has PRN medications available to him if needed. Patient has been taking trazodone for sleep with good effect reported, denies medication side effects. Patient denies suicidal and homicidal ideation and is able to verbalize how to access supportive services on the unit if needed. Will increase patient's a.m. gabapentin dose and will continue to monitor patient's response to medications and monitor for side effects. Will also evaluate patient 's safety, resolution of suicidal ideation, and discharge readiness. Patient indicates when prepared for discharge he would like to return home with parents with whom he lives and to resume outpatient treatment through [facility] for psychotherapy and medication management services, states today he is considering participation in inpatient substance abuse treatment. MANAGEMENT PLAN: Continue Effexor XR 150 mg po BID, increase gabapentin to 200 mg p q am and 100 mg po at 1600 and 2100. Continue Trazodone 50 mg po hs PRN insomnia, Zyprexa 5 mg po q 4 hours PRN agitation, and hydroxyzine 50 mg po q 6 hours PRN anxiety Maintain safety precautions Patient to attend groups and participate in unit programming to develop coping strategies Engage patient in discharge planning process and arrange meeting with command to evaluate safe discharge planning when appropriate Patient to follow up with PCM regarding recent EKG results, thyroid cyst, and any other health concerns upon discharge TIME SPENT: 25 minutes Vital Signs Vital Signs Date Time Temp Pulse Resp B/P (MAP) Pulse Ox O2 Delivery O2 Flow Rate FiO2 11/05/16 14:37 98.6 80 16 145/92 (109) 11/02/16 13:49 100 11/02/16 05:08 Room Air Current Medications Current Medications Acetaminophen (Tylenol Tab) 650 mg Q6HP PRN PO HEADACHE or DISCOMFORT Last administered on 11/05/16 14:35; Start 11/02/16 at 14:00; Stop 12/02/16 at 13:59 Al Hydrox/Mg Hydrox/Simethicone (Mylanta) 30 ml Q4HP PRN PO HEARTBURN/ INDIGESTION; Start 11/02/16 at 14:00; Stop 12/02/16 at 13:59 Clonazepam (KlonoPIN) 0.1 mg TIDP PRN PO WITHDRAWAL SYMPTOMS; Start 11/02/16 at 18:45; Stop 11/02/16 at 18:54; Status DC Clonidine HCl (Catapres) 0.1 mg TIDP PRN PO WITHDRAWAL SYMPTOMS Last administered on 11/05/16 14:35; Start 11/02/16 at 19:00; Stop 12/02/16 at 18:59 Gabapentin (Neurontin) 100 mg TID PO Last administered on 11/05/16 16:06; Start 11/03/16 at 16:00; Stop 12/03/16 at 15:59 Haloperidol (Haldol) 5 mg Q4HP PRN PO ANXIETY/AGITATION Last administered on 14:26; Start 11/02/16 at 15:15; Stop 11/03/16 at 15:48; Status DC Home Med (Med Rec Complete!) ASDIRECTED XX ; Start 11/02/16 at 14:30; Stop at 14:45; Status DC Hydroxyzine HCl (Atarax) 50 mg Q2HP PRN PO ANXIETY/AGITATION Last administered on 11/03/16 11:20; Start 11/02/16 at 15:15; Stop 11/03/16 at 15:56; Status DC Hydroxyzine HCl (Atarax) 50 mg Q6HP PRN PO ANXIETY Last administered on 18:01; Start 11/04/16 at 15:15; Stop 12/02/16 at 15:14 Loratadine (Claritin) 10 mg DAILY PRN PO ALLERGIES; Start 11/03/16 at 09:30; Stop 12/03/16 at 09:29 Magnesium Hydroxide (Milk Of Magnesia) 30 ml DAILYPRN PRN PO CONSTIPATION; Start 11/02/16 at 14:00; Stop 12/02/16 at 13:59 Nicotine (Nicoderm Cq 21mg) 1 patch DAILY TD ; Start 11/03/16 at 09:00; Stop at 08:59 Olanzapine (ZyPREXA) 5 mg Q4HP PRN PO AGITATION Last administered on 11/04/16 13:25; Start 11/02/16 at 18:45; Stop 12/02/16 at 18:44 Omeprazole (PriLOSEC) 40 mg DAILY PO Last administered on 11/05/16 08:03; Start 11/02/16 at 09:00; Stop 12/02/16 at 08:59 Prednisone (Deltasone) 20 mg TID PO Last administered on 11/04/16 08:03; Start 11/02/16 at 16:00; Stop 11/04/16 at 15:59; Status DC Trazodone HCl (Desyrel) 50 mg QHSP PRN PO INSOMNIA Last administered on 20:14; Start 11/02/16 at 14:00; Stop 12/02/16 at 13:59 Venlafaxine HCl (Effexor Xr) 150 mg BID PO Last administered on 11/05/16 08:03; Start 11/04/16 at 09:00; Stop 12/03/16 at 08:59 Venlafaxine HCl (Effexor Xr) 225 mg QAM PO Last administered on 11/03/16 08:05; Start 11/03/16 at 09:00; Stop 11/03/16 at 18:50; Status DC Venlafaxine HCl (Effexor) 225 mg QAM PO ; Start 11/03/16 at 09:00; Stop at 09:00; Status DC Venlafaxine HCl (Effexor) 225 mg QAM PO ; Start 11/03/16 at 09:00; Stop at 08:59; Status UNV Allergies Coded Allergies: Dust (Unverified Allergy, Mild, 05/23/09) Grass (Unverified Allergy, Mild, 05/23/09) Molds & Smuts (Unverified Allergy, Mild, 07/20/12) Pretty Alexandre Nov 05, 2016 18:23
[2016-11-05] MEDS: OLANZapine 5 MG TAB PO PRN (19:03)
[2016-11-05] MEDS: traZODone 50 MG TAB PO PRN (21:25)
[2016-11-06 06:19] VITALS: BP 149/83
[2016-11-06] MEDS: VENLAFAXINE **XR** 75MG CAPSULE PO SCH ×2 (07:59→21:01)
[2016-11-06] MEDS: OMEPRAZOLE 20 MG CAP PO SCH (07:59)
[2016-11-06] MEDS: GABAPENTIN 100 MG CAP PO SCH ×3 (07:59→21:01)
[2016-11-06] MEDS: ACETAMINOPHEN TAB 650MG DOSE (2X325MG) PO PRN ×2 (08:00→16:16)
[2016-11-06] MEDS: NICOTINE 21MG/24HR 1 EA TRANSDERMAL TD SCH (08:01)
[2016-11-06] MEDS: hydrOXYzine 50 MG TAB PO PRN ×2 (09:15→17:58)
--- NOTE | 2016-11-06 09:15 | MHIPNPDOC ---
[facility] Progress Note Progress Note DATE OF SERVICE: 11/06/16 HISTORY OF THE PRESENT ILLNESS: Patient is a 21-year-old male who states after being involved in a physical altercation with the police last Wednesday night he took approximately 12 (ER report indicates 20 tablets) of 10 mg Valium tablets which had been prescribed the day before by an ER doctor for pinched nerve to back. Patient states ingestion of Valium was not a suicide attempt. 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 Patient states altercation with police was unprovoked, however, per ER report patient had indicated that the police were contacted after the blood bank credit clerk suspected patient was intoxicated. Patient was reportedly "hysterical/labile" in the ER. Patient has one prior psychiatric admission from 05/22-05/27/16 secondary to acute stress reaction which patient states stemmed from abusing Percocet he was reportedly given when he broke ribs. Per EMR, after being treated with Percocet patient began buying Percocet on the street. Atmospheric Sciences Professor met with patient today to assess treatment progress on inpatient unit. Patient reports ongoing improvement to symptoms of anxiety and depression, rates current anxiety level as 5/10, denies experiencing symptoms of depression , denies suicidal and homicidal ideation, denies auditory and visual hallucinations, denies urge to engage in self-injurious behavior. Patient informs advertising copywriter the dose increase to gabapentin is helping to control symptoms of anxiety, reports improvement to a.m. anxiety noting, "it made the morning a lot easier," denies need for another dosing adjustment at this time. Patient utilized hydroxyzine PRN this morning indicating, "I was triggered by something in group, it made me think about my brother," has not needed to utilize Zyprexa PRN or clonidine at time of interaction. Patient utilized clonidine yesterday, indicates he has a history of hypertension "for the past couple years, usually after I stopped using," which preexists psychotropic medication trials, notes clonidine has been effective in the past. Patient is asymptomatic and declines medication dosing adjustment. Patient states he has not taken B/P medication, is asymptomatic and denies symptoms of chest pain, palpitations, shortness of breath, headache, dizziness. Vitals changed to q 4 hours. Patient states Effexor is effective in helping to control symptoms of anxiety and depression noting, "it works great, it gives me an uplifting vibe and my mood is better." Patient feels current medication regimen is effective and denies medication side effects. Patient denies symptoms of craving or withdrawal, has been more visible, calmer, no episodes of crying, attending groups, states he continues to sleep well with use of trazodone, reports improvement in energy level and concentration and focus. Atmospheric Sciences Professor again spoke with patient at length regarding recommendation for discharged inpatient substance abuse treatment, patient indicates he will participate in outpatient substance abuse treatment but is refusing inpatient treatment at this time. Patient presents with no signs of acute distress at time of interaction. I-Stop review completed 11/03/16 VITALS: See below NEW TEST RESULTS: 11/04/16 lab results indicate low HCT and TSH, PA is aware and has addressed, patient to follow-up with outpatient provider within 3-4 weeks of discharge regarding thyroid cyst recheck. MEDICAL/SURGICAL HISTORY: GERD, back pain, history of fall. [place] teeth extraction. Patient reports history of fractured knee February,, and fractured rib March,. Patient reports is currently experiencing pinched nerve to back. Patient denies history of seizure, reports history of 2 concussions at age 9 and 17 for which he received treatment, LOC unknown. Patient indicates he experiences "muscle spasms which began years ago," indicates he has not been evaluated by PCM or neurologist. Labs on admission indicate elevated WBC, neut %, neut #, and low RBC, Hgb, HCT, lymph %, lymph #, anion gap, BUN, AST, and TSH Vitamin D deficiency, leukocytosis, patient is afebrile and asymptomatic. PA is aware and is addressing TSH leukocytosis and vitamin D deficiency UDS positive for opiates, benzodiazepines, cocaine, and cannabinoids 10/31/16 EKG sinus rhythm with sinus arrhythmia U-wave nonspecific ST-T wave changes. Patient is asymptomatic and clinical consultation has been sought with recommendation made for follow-up outpatient 11/05/16 x-ray of spine - no acute fracture or subluxation 11/05/16 thyroid ultrasound - tiny cyst right lobe of the thyroid without other significant abnormality, recommendation made by PA for follow-up with outpatient provider post discharge. CURRENT MEDICATIONS: See below MENTAL STATUS EXAMINATION: General appearance: Patient is a 21-year old male, who is engageable, is less invasive today, is pleasant and cooperative, makes improved eye contact, exhibits adequate personal hygiene, is dressed in hospital clothing, appears stated age, ambulates with steady gait Speech: Of normal rate, rhythm, volume, spontaneous, coherent Thought processes: Linear, logical, goal-directed Thought content: Rational, logical, no tangentiality or paranoia noted. Abstract reasoning and computation: Appear intact Description of associations: Intact. Description of abnormal or psychotic thoughts: Denies suicidal or homicidal ideation, denies auditory or visual hallucinations, does not appear to be responding to internal stimuli, does not endorse bizarre or paranoid ideation, denies preoccupation with violence obsessions. Judgment: Poor, some improvement noted during treatment Insight: Limited, some improvement noted Orientation: A and O 3. Recent and remote memory: Appear intact. Attention span and concentration: Adequate. Fund of knowledge: Appears adequate. Mood: "Okay, I'm feeling better today, I think the medications are starting to help." Patient appears less anxious and less depressed, no mood lability noted Affect: Constricted, brightens at times, congruent with mood. DIAGNOSES: Unspecified depressive disorder, polysubstance use disorder. Rule out substance-induced mood disorder, rule out major depressive disorder, rule out anxiety disorder. ASSESSMENT: Patient appears to be adjusting to unit well, has been more visible , participating in unit activities, has been observed engaging selectively with peers, remains in behavioral control with no crying episodes, and has presented with no behavior management challenges. Patient reiterates today that recent overdose on Valium was not a suicide attempt, expresses some insight as to need for substance abuse treatment, he engages in less minimization and rationalization of events, behavior, and substance abuse which preceded current hospitalization. Patient reports improvement to symptoms of depression and anxiety with current medication regimen and denies medication side effects. Patient denies symptoms of craving or withdrawal but indicates intermittent elevated blood pressure may be related to substance discontinuation, remains aware he has PRN medications available to him if needed. Patient has been taking trazodone for sleep with good effect reported, denies medication side effects. Patient denies suicidal and homicidal ideation and is able to verbalize how to access supportive services on the unit if needed. Will continue patient's current medication regimen and will continue to monitor patient's response to medications and monitor for side effects. Will also evaluate patient's safety, resolution of suicidal ideation, and discharge readiness. Patient indicates when prepared for discharge he would like to return home with parents with whom he lives and to resume outpatient treatment through [facility] for psychotherapy and medication management services, indicates today he does not want to participate in inpatient substance abuse treatment but will consider participating in outpatient substance abuse treatment. MANAGEMENT PLAN: Continue Effexor XR 150 mg po BID, gabapentin 200 mg p q am and 100 mg po at 1600 and 2100, Trazodone 50 mg po hs PRN insomnia, Zyprexa 5 mg po q 4 hours PRN agitation, hydroxyzine 50 mg po q 6 hours PRN anxiety Vitals q 4 hours Maintain safety precautions Patient to attend groups and participate in unit programming to develop coping strategies Engage patient in discharge planning process and arrange meeting with command to evaluate safe discharge planning when appropriate Patient to follow up with PCM regarding recent EKG results, thyroid cyst recheck , and any other health concerns upon discharge TIME SPENT: 25 minutes Vital Signs Vital Signs Date Time Temp Pulse Resp B/P (MAP) Pulse Ox O2 Delivery O2 Flow Rate FiO2 11/06/16 06:19 98.4 63 16 149/83 (105) 11/02/16 13:49 100 11/02/16 05:08 Room Air Current Medications Current Medications Acetaminophen (Tylenol Tab) 650 mg Q6HP PRN PO HEADACHE or DISCOMFORT Last administered on 11/06/16 08:00; Start 11/02/16 at 14:00; Stop 12/02/16 at 13:59 Al Hydrox/Mg Hydrox/Simethicone (Mylanta) 30 ml Q4HP PRN PO HEARTBURN/ INDIGESTION; Start 11/02/16 at 14:00; Stop 12/02/16 at 13:59 Clonazepam (KlonoPIN) 0.1 mg TIDP PRN PO WITHDRAWAL SYMPTOMS; Start 11/02/16 at 18:45; Stop 11/02/16 at 18:54; Status DC Clonidine HCl (Catapres) 0.1 mg TIDP PRN PO WITHDRAWAL SYMPTOMS Last administered on 11/05/16 14:35; Start 11/02/16 at 19:00; Stop 12/02/16 at 18:59 Gabapentin (Neurontin) 100 mg BID@1600,2100 PO Last administered on 11/05/16 20:31; Start 11/05/16 at 21:00; Stop 12/05/16 at 20:59 Gabapentin (Neurontin) 100 mg TID PO Last administered on 11/05/16 16:06; Start 11/03/16 at 16:00; Stop 11/05/16 at 18:34; Status DC Gabapentin (Neurontin) 200 mg QAM PO Last administered on 11/06/16 07:59; Start 11/06/16 at 09:00; Stop 12/06/16 at 08:59 Haloperidol (Haldol) 5 mg Q4HP PRN PO ANXIETY/AGITATION Last administered on 14:26; Start 11/02/16 at 15:15; Stop 11/03/16 at 15:48; Status DC Home Med (Med Rec Complete!) ASDIRECTED XX ; Start 11/02/16 at 14:30; Stop at 14:45; Status DC Hydroxyzine HCl (Atarax) 50 mg Q2HP PRN PO ANXIETY/AGITATION Last administered on 11/03/16 11:20; Start 11/02/16 at 15:15; Stop 11/03/16 at 15:56; Status DC Hydroxyzine HCl (Atarax) 50 mg Q6HP PRN PO ANXIETY Last administered on 18:01; Start 11/04/16 at 15:15; Stop 12/02/16 at 15:14 Loratadine (Claritin) 10 mg DAILY PRN PO ALLERGIES; Start 11/03/16 at 09:30; Stop 12/03/16 at 09:29 Magnesium Hydroxide (Milk Of Magnesia) 30 ml DAILYPRN PRN PO CONSTIPATION; Start 11/02/16 at 14:00; Stop 12/02/16 at 13:59 Nicotine (Nicoderm Cq 21mg) 1 patch DAILY TD ; Start 11/03/16 at 09:00; Stop at 08:59 Olanzapine (ZyPREXA) 5 mg Q4HP PRN PO AGITATION Last administered on 11/05/16 19:03; Start 11/02/16 at 18:45; Stop 12/02/16 at 18:44 Omeprazole (PriLOSEC) 40 mg DAILY PO Last administered on 11/06/16 07:59; Start 11/02/16 at 09:00; Stop 12/02/16 at 08:59 Prednisone (Deltasone) 20 mg TID PO Last administered on 11/04/16 08:03; Start 11/02/16 at 16:00; Stop 11/04/16 at 15:59; Status DC Trazodone HCl (Desyrel) 50 mg QHSP PRN PO INSOMNIA Last administered on 21:25; Start 11/02/16 at 14:00; Stop 12/02/16 at 13:59 Venlafaxine HCl (Effexor Xr) 150 mg BID PO Last administered on 11/06/16 07:59; Start 11/04/16 at 09:00; Stop 12/03/16 at 08:59 Venlafaxine HCl (Effexor Xr) 225 mg QAM PO Last administered on 11/03/16 08:05; Start 11/03/16 at 09:00; Stop 11/03/16 at 18:50; Status DC Venlafaxine HCl (Effexor) 225 mg QAM PO ; Start 11/03/16 at 09:00; Stop at 09:00; Status DC Venlafaxine HCl (Effexor) 225 mg QAM PO ; Start 11/03/16 at 09:00; Stop at 08:59; Status UNV Allergies Coded Allergies: Dust (Unverified Allergy, Mild, 2/4/10) Grass (Unverified Allergy, Mild, 2/4/10) Molds & Smuts (Unverified Allergy, Mild, 07/20/12) Pretty Alexandre Nov 06, 2016 09:15
[2016-11-06 14:25] VITALS: BP 161/102
[2016-11-06] MEDS: cloNIDine 0.1 MG TAB PO PRN (14:25)
[2016-11-06 18:00] VITALS: BP 148/90
[2016-11-06] MEDS: traZODone 50 MG TAB PO PRN (21:38)
[2016-11-07 07:00] VITALS: BP_SYST 112; BP_SYST 128; BP_DIAS 64; BP_DIAS 76
[2016-11-07] MEDS: NICOTINE 21MG/24HR 1 EA TRANSDERMAL TD SCH (08:03)
[2016-11-07] MEDS: GABAPENTIN 100 MG CAP PO SCH ×3 (08:04→21:01)
[2016-11-07] MEDS: ACETAMINOPHEN TAB 650MG DOSE (2X325MG) PO PRN ×2 (08:04→17:08)
[2016-11-07] MEDS: VENLAFAXINE **XR** 75MG CAPSULE PO SCH ×2 (08:04→21:01)
[2016-11-07] MEDS: OMEPRAZOLE 20 MG CAP PO SCH (08:04)
[2016-11-07] MEDS: hydrOXYzine 50 MG TAB PO PRN (14:39)
[2016-11-07 18:00] VITALS: BP 137/86
[2016-11-07 21:00] VITALS: BP 140/82
[2016-11-07] MEDS: traZODone 50 MG TAB PO PRN (21:28)
[2016-11-08 06:19] VITALS: BP 149/92
[2016-11-08] MEDS: NICOTINE 21MG/24HR 1 EA TRANSDERMAL TD SCH (08:09)
[2016-11-08] MEDS: VENLAFAXINE **XR** 75MG CAPSULE PO SCH ×2 (08:13→20:24)
[2016-11-08] MEDS: GABAPENTIN 100 MG CAP PO SCH ×3 (08:13→20:24)
[2016-11-08] MEDS: OMEPRAZOLE 20 MG CAP PO SCH (08:13)
[2016-11-08 09:50] VITALS: BP 144/89
[2016-11-08] MEDS: ACETAMINOPHEN TAB 650MG DOSE (2X325MG) PO PRN ×2 (10:04→18:09)
[2016-11-08 14:12] VITALS: BP 138/90
[2016-11-08 18:00] VITALS: BP 123/87
[2016-11-08] MEDS: hydrOXYzine 50 MG TAB PO PRN (21:16)
[2016-11-09 06:50] VITALS: BP 143/93
[2016-11-09] MEDS: VENLAFAXINE **XR** 75MG CAPSULE PO SCH (08:11)
[2016-11-09] MEDS: OMEPRAZOLE 20 MG CAP PO SCH (08:11)
[2016-11-09] MEDS: GABAPENTIN 100 MG CAP PO SCH ×2 (08:11→15:00)
[2016-11-09] MEDS: NICOTINE 21MG/24HR 1 EA TRANSDERMAL TD SCH (08:12)
[2016-11-09] MEDS: OLANZapine 5 MG TAB PO PRN (08:57)
--- NOTE | 2016-11-09 09:28 | MHIPNPDOC ---
[facility] Progress Note Progress Note DATE OF SERVICE: 11/09/16 Entry made an error, please refer to discharge summary of same date for details. Vital Signs Vital Signs Date Time Temp Pulse Resp B/P (MAP) Pulse Ox O2 Delivery O2 Flow Rate FiO2 11/09/16 06:50 97.3 85 18 143/93 (110) Current Medications Current Medications Acetaminophen (Tylenol Tab) 650 mg Q6HP PRN PO HEADACHE or DISCOMFORT Last administered on 11/08/16 18:09; Start 11/02/16 at 14:00; Stop 12/02/16 at 13:59 Al Hydrox/Mg Hydrox/Simethicone (Mylanta) 30 ml Q4HP PRN PO HEARTBURN/ INDIGESTION; Start 11/02/16 at 14:00; Stop 12/02/16 at 13:59 Clonazepam (KlonoPIN) 0.1 mg TIDP PRN PO WITHDRAWAL SYMPTOMS; Start 11/02/16 at 18:45; Stop 11/02/16 at 18:54; Status DC Clonidine HCl (Catapres) 0.1 mg TIDP PRN PO WITHDRAWAL SYMPTOMS Last administered on 11/06/16 14:25; Start 11/02/16 at 19:00; Stop 12/02/16 at 18:59 Gabapentin (Neurontin) 100 mg BID@1600,2100 PO Last administered on 11/08/16 20:24; Start 11/05/16 at 21:00; Stop 12/05/16 at 20:59 Gabapentin (Neurontin) 100 mg TID PO Last administered on 11/05/16 16:06; Start 11/03/16 at 16:00; Stop 11/05/16 at 18:34; Status DC Gabapentin (Neurontin) 200 mg QAM PO Last administered on 11/09/16 08:11; Start 11/06/16 at 09:00; Stop 12/06/16 at 08:59 Haloperidol (Haldol) 5 mg Q4HP PRN PO ANXIETY/AGITATION Last administered on 14:26; Start 11/02/16 at 15:15; Stop 11/03/16 at 15:48; Status DC Home Med (Med Rec Complete!) ASDIRECTED XX ; Start 11/02/16 at 14:30; Stop at 14:45; Status DC Hydroxyzine HCl (Atarax) 50 mg Q2HP PRN PO ANXIETY/AGITATION Last administered on 11/03/16 11:20; Start 11/02/16 at 15:15; Stop 11/03/16 at 15:56; Status DC Hydroxyzine HCl (Atarax) 50 mg Q6HP PRN PO ANXIETY Last administered on 21:16; Start 11/04/16 at 15:15; Stop 12/02/16 at 15:14 Loratadine (Claritin) 10 mg DAILY PRN PO ALLERGIES; Start 11/03/16 at 09:30; Stop 12/03/16 at 09:29 Magnesium Hydroxide (Milk Of Magnesia) 30 ml DAILYPRN PRN PO CONSTIPATION; Start 11/02/16 at 14:00; Stop 12/02/16 at 13:59 Nicotine (Nicoderm Cq 21mg) 1 patch DAILY TD ; Start 11/03/16 at 09:00; Stop at 08:59 Olanzapine (ZyPREXA) 5 mg Q4HP PRN PO AGITATION Last administered on 11/09/16 08:57; Start 11/02/16 at 18:45; Stop 12/02/16 at 18:44 Omeprazole (PriLOSEC) 40 mg DAILY PO Last administered on 11/09/16 08:11; Start 11/02/16 at 09:00; Stop 12/02/16 at 08:59 Prednisone (Deltasone) 20 mg TID PO Last administered on 11/04/16 08:03; Start 11/02/16 at 16:00; Stop 11/04/16 at 15:59; Status DC Trazodone HCl (Desyrel) 50 mg QHSP PRN PO INSOMNIA Last administered on 21:28; Start 11/02/16 at 14:00; Stop 12/02/16 at 13:59 Venlafaxine HCl (Effexor Xr) 150 mg BID PO Last administered on 11/09/16 08:11; Start 11/04/16 at 09:00; Stop 12/03/16 at 08:59 Venlafaxine HCl (Effexor Xr) 225 mg QAM PO Last administered on 7/18/17at 08:05; Start 11/03/16 at 09:00; Stop 11/03/16 at 18:50; Status DC Venlafaxine HCl (Effexor) 225 mg QAM PO ; Start 11/03/16 at 09:00; Stop at 09:00; Status DC Venlafaxine HCl (Effexor) 225 mg QAM PO ; Start 11/03/16 at 09:00; Stop at 08:59; Status UNV Allergies Coded Allergies: Dust (Unverified Allergy, Mild, 05/23/09) Grass (Unverified Allergy, Mild, 05/23/09) Molds & Smuts (Unverified Allergy, Mild, 07/20/12) Pretty Alexandre Nov 09, 2016 09:28
[2016-11-09 11:51] VITALS: BP 138/89
[2016-11-09] MEDS: ACETAMINOPHEN TAB 650MG DOSE (2X325MG) PO PRN (11:53)
[2016-11-09] MEDS ORDERED: VENL150C43 PO (12:12)
[2016-11-09] MEDS ORDERED: GABA-279 PO ×3 (12:12→14:01)
[2016-11-09] MEDS ORDERED: NICO21PAT TD (13:24)
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
== END 2016-11-09 15:26 | disposition home or self-care (01) | DRG 754 ==
LOC: M ED 10:49 → M ED INP 11-02 13:51 → M ED 11-02 14:05 → M PSY 11-02 14:10
PROVIDERS: ADMIT Psychiatry & Neurology Psychiatry; ATTEND Psychiatry & Neurology Psychiatry
DX: F32.9 Major depressive disorder, single episode, unspecified (principal); E55.9 Vitamin D deficiency, unspecified; F19.94 Other psychoactive substance use, unspecified with psychoactive substance-induced mood disorder; F12.90 Cannabis use, unspecified, uncomplicated; Z79.899 Other long term (current) drug therapy; F17.200 Nicotine dependence, unspecified, uncomplicated; K21.9 Gastro-esophageal reflux disease without esophagitis; M54.5 Low back pain; J30.9 Allergic rhinitis, unspecified; D72.829 Elevated white blood cell count, unspecified

== ENCOUNTER 2016-12-23 14:14 | Inpatient (IN) | payer MEDICAID, OTHER ==
[~2016-12-23] VITALS: Ht 180.3 cm; Wt 79.7 kg
[~2016-12-23 14:14] MED LIST changes: +BUSP5TA PO; +GABA-279 PO; +NICO21PAT TD; +PRED20TA; +VALI10TA; +VENL100T PO; +VENL150C43 PO
[2016-12-23 15:44] LABS: MEAN CORPUSCULAR HEMOGLOBIN 29.7 pg (27.0-33.0); MEAN CORPUSCULAR HGB CONC 32.1 g/dl (32.0-36.5); MEAN CORPUSCULAR VOLUME 92.6 fl (80.0-96.0); RED CELL DISTRIBUTION WIDTH 12.2 % (11.5-14.5); WHITE BLOOD COUNT 8.8 K/mm3 (4.0-10.0)
[2016-12-23 16:09] LABS: ALBUMIN 4.1 GM/DL (3.2-5.2); ALBUMIN/GLOBULIN RATIO 1.46 (1.00-1.93); ALKALINE PHOSPHATASE 69 U/L (45-117); ALT/SGPT 23 U/L (12-78); ANION GAP 11 MEQ/L (8-16); AST/SGOT 27 U/L (15-37); BILIRUBIN,DIRECT 0.1 MG/DL (0.0-0.2); BILIRUBIN,TOTAL 0.3 MG/DL (0.2-1.0); BLOOD UREA NITROGEN 11 MG/DL (7-18); CALCIUM LEVEL 9.2 MG/DL (8.5-10.1); CARBON DIOXIDE LEVEL 27 MEQ/L (21-32); CHLORIDE LEVEL 102 MEQ/L (98-107); CREATININE FOR GFR 1.03 MG/DL (0.70-1.30); GLUCOSE, FASTING 76 MG/DL (70-105); METHADONE URINE NEGATIVE (NEGATIVE); POTASSIUM SERUM 4.3 MEQ/L (3.5-5.1); SODIUM LEVEL 140 MEQ/L (136-145); TOTAL PROTEIN 6.9 GM/DL (6.4-8.2)
[2016-12-23] MEDS ORDERED: HYDR50TA70 PO (17:58)
[2016-12-23] MEDS ORDERED: CETI10TA PO (17:58)
[2016-12-23] MEDS ORDERED: BUSP10TA PO (17:58)
[2016-12-23] MEDS ORDERED: MELO15TA4 PO (17:58)
[2016-12-23] MEDS ORDERED: ZANA4CAP PO (17:58)
[2016-12-23] MEDS ORDERED: OMEP40CA2 PO (17:58)
[2016-12-23] MEDS ORDERED: PRED20TA PO (17:58)
[2016-12-23] MEDS ORDERED: GABA-279 PO (17:58)
[2016-12-23] MEDS ORDERED: VENL150C43 PO (17:58)
[2016-12-23] MEDS ORDERED: GABA-282 PO (17:59)
[2016-12-23] MEDS ORDERED: ONDANSETRON 4 MG ORAL DISINTEGRATING TAB (S0181) PO ONE (18:00)
[2016-12-23] MEDS ORDERED: OMEPRAZOLE 20 MG CAP PO ONE (18:00)
[2016-12-23] MEDS ORDERED: hydrOXYzine 50 MG TAB PO PRN (19:15)
[2016-12-23] MEDS ORDERED: ONDANSETRON 4 MG TAB (S0181) PO PRN (19:15)
[2016-12-23] MEDS ORDERED: traZODone 50 MG TAB PO PRN (20:15)
[2016-12-23] MEDS ORDERED: MAALOX 30 ML SUSP *UDC PO PRN (20:15)
[2016-12-23] MEDS ORDERED: MOM 30ML SUSPENSION UDC PO PRN (20:15)
[2016-12-23] MEDS: tiZANidine 4 MG TAB PO PRN (20:24)
[2016-12-23] MEDS: hydrOXYzine 50 MG TAB PO SCH (20:24)
[2016-12-23] MEDS: busPIRone 10 MG TAB PO SCH (20:24)
[2016-12-23] MEDS: VENLAFAXINE **XR** 75MG CAPSULE PO SCH (20:24)
[2016-12-23] MEDS: GABAPENTIN 300 MG CAP PO SCH (20:24)
[2016-12-23] MEDS: ACETAMINOPHEN TAB 650MG DOSE (2X325MG) PO PRN (20:25)
[2016-12-23 20:37] VITALS: BP 170/86
--- NOTE | 2016-12-24 06:05 | HPE ---
DATE OF ADMISSION: 12/23/2016 HISTORY OF PRESENT ILLNESS: Please refer to psychiatric history and evaluation for further details on this admission. This examination and history is intended for medical issues, which may need treatment, followup or consult on this 21-year-old male. SOCIAL HISTORY: Resides in [place] with his parents. He is single. He does not drink alcohol. He smokes marijuana 3-4 times a week. He is abusing opiates and pain medications, as well as Valium. PAST MEDICAL HISTORY: 1. Anxiety. 2. Depression. 3. Substance abuse. 4. Gastroesophageal reflux disease (GERD). 5. Chronic back pain. PAST SURGICAL HISTORY: [place] teeth extraction. ELECTROCARDIOGRAM (EKG): 10/31/2016: Shows sinus rhythm with sinus arrhythmia. CURRENT MEDICATIONS: - BuSpar 10 mg by mouth three times a day - cetirizine 10 mg by mouth daily - gabapentin 300 mg by mouth three times a day - hydroxyzine 50 mg by mouth three times a day - meloxicam 15 mg by mouth daily - omeprazole 40 mg by mouth daily - prednisone he had been on a taper; will obtain from [facility] (ER) - tizanidine 4 mg by mouth every eight hours as needed for pain - venlafaxine 150 mg by mouth twice a day Information was obtained from the chart. LABORATORY DATA: WBC 8.8, hemoglobin 13.3, hematocrit 41.5, platelets 305. CMP was normal. Toxicology was positive for cannabinoids, benzodiazepines and opiates. REVIEW OF SYSTEMS: Unable to do review of systems. Patient was crying, trying to talk to his mother, wanted to be out of here. He finally took some Tylenol and lay down. He did not wish to proceed any further. ALLERGIES: 1. CYCLOBENZAPRINE. 2. DUST. 3. GRASS. 4. MOLDS. 5. SMUTS. PLAN: Review of records from [facility]: The patient has been there almost every day for 5-6 days. He has been given Valium and tramadol. He took that in over two days. He had a CT scan which was negative and lumbosacral (LS) spine x-ray which is essentially negative. Would recommend a pain consult for here before prescribing any further opiates.
[2016-12-24 06:25] VITALS: BP 129/72
[2016-12-24] MEDS: OMEPRAZOLE 20 MG CAP PO SCH (08:03)
[2016-12-24] MEDS: CETIRIZINE (ZyrTEC) 10 MG TAB PO SCH (08:03)
[2016-12-24] MEDS: busPIRone 10 MG TAB PO SCH ×3 (08:03→20:06)
[2016-12-24] MEDS: VENLAFAXINE **XR** 75MG CAPSULE PO SCH ×2 (08:03→20:07)
[2016-12-24] MEDS: predniSONE 20 MG TAB PO SCH (08:03)
[2016-12-24] MEDS: MELOXICAM (MOBIC) 7.5 MG TAB PO SCH (08:03)
[2016-12-24] MEDS: hydrOXYzine 50 MG TAB PO SCH ×3 (08:03→20:06)
[2016-12-24] MEDS: GABAPENTIN 300 MG CAP PO SCH ×3 (08:03→20:07)
[2016-12-24] MEDS: ACETAMINOPHEN TAB 650MG DOSE (2X325MG) PO PRN ×2 (09:22→15:36)
[2016-12-24] MEDS: risperiDONE 0.5 MG TAB PO SCH ×2 (11:15→20:07)
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
[2016-12-24] MEDS ORDERED: QUEtiapine FUMARATE 100 MG TAB PO SCH (21:00)
[2016-12-25 06:00] VITALS: BP 92/54
[2016-12-25] MEDS: GABAPENTIN 300 MG CAP PO SCH ×3 (08:14→20:20)
[2016-12-25] MEDS: predniSONE 20 MG TAB PO SCH (08:14)
[2016-12-25] MEDS: MELOXICAM (MOBIC) 7.5 MG TAB PO SCH (08:14)
[2016-12-25] MEDS: hydrOXYzine 50 MG TAB PO SCH (08:14)
[2016-12-25] MEDS: CETIRIZINE (ZyrTEC) 10 MG TAB PO SCH (08:14)
[2016-12-25] MEDS: OMEPRAZOLE 20 MG CAP PO SCH (08:14)
[2016-12-25] MEDS: busPIRone 10 MG TAB PO SCH ×3 (08:14→20:20)
[2016-12-25] MEDS: risperiDONE 0.5 MG TAB PO SCH ×2 (08:14→20:20)
[2016-12-25] MEDS: VENLAFAXINE **XR** 75MG CAPSULE PO SCH ×2 (08:14→20:20)
[2016-12-25] MEDS: ACETAMINOPHEN TAB 650MG DOSE (2X325MG) PO PRN ×2 (08:15→15:50)
[2016-12-25] MEDS: hydrOXYzine 50 MG TAB PO PRN ×3 (09:25→18:21)
--- NOTE | 2016-12-25 16:46 | MHIPNPDOC ---
[facility] Progress Note Progress Note DATE OF SERVICE: 12/25/16 HISTORY: Report from nursing staff indicated that patient had been crying frequently about many small frustrations on the unit. Patient entered the interview room smiling and in a pleasant mood. He stated "everything is good; I talked to my mom, and my dad, the whole family misses me". He states that the family "worked things out" and that he would have no problems upon returning home. He feels that he is being victimized because of the "joke" he made about wanting to . He denies suicidal ideation again and contineus to profess a lack of awareness regarding his opioid positivity. He states that he had some aspirin with codeine a month or two ago, but denies any recent use. Asks when he can be discharged as he feels like his home situation is fine. VITAL SIGNS: See below. NEW TEST RESULTS: no new labs/imaging CURRENT MEDICATIONS: See below. MENTAL STATUS EXAMINATION: Patient is a 21-year old male, who is dressed in personal clothes appropriate to the season with good hygiene/grooming; calm and cooperative with interview, no psychomotor changes noted Speech: Is fluent; normal rate, tone, and volume Thought processes including: logical, linear, coherent Thought content: denies SI/HI, feels he has resolved his communication difficulties with his mother Description of associations: intact Description of abnormal or psychotic thoughts: denies AVH, does not appear internally preoccupied; no paranoid or delusional thoughts noted Judgment: poor Insight: limited-poor Orientation: x3 Recent and remote memory: intact Attention span and concentration: intact Mood: "a lot better". 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 Also continues to deny his drug use and attempt to explain in improbably ways the reason for his positive opioid test. He has had limited engagement with groups on the unit and is heavily focused on his mother coming to visit him. He notes that she is "the only reason I want to get out of bed while I'm here". Given his rapid turnaround after speaking with his family he is likely enmeshed and dealing with a complicated family dynamic system. At the very least the patient would benefit from encouragement to develop skills which might assist him in coping with future anger outbursts MANAGEMENT PLAN: Increase Seroquel to 200mg as patient reporting poor sleep and continues to struggle with impulse control; encourage patient to attend groups with a focus on developing coping skills to manage his anger with his family TIME SPENT: 15 minutes. Vital Signs Vital Signs Date Time Temp Pulse Resp B/P (MAP) Pulse Ox O2 Delivery O2 Flow Rate FiO2 12/25/16 06:00 97.8 69 18 92/54 (67) 12/23/16 20:37 Room Air 12/23/16 19:00 96 Current Medications Current Medications Acetaminophen (Tylenol Tab) 650 mg Q6HP PRN PO HEADACHE or DISCOMFORT Last administered on 12/25/16 15:50; Start 12/23/16 at 20:15; Stop 01/22/17 at 20:14 Al Hydrox/Mg Hydrox/Simethicone (Mylanta) 30 ml Q4HP PRN PO HEARTBURN/ INDIGESTION; Start 12/23/16 at 20:15; Stop 01/22/17 at 20:14 Buspirone HCl (Buspar) 10 mg TID PO Last administered on 12/25/16 15:49; Start 12/23/16 at 21:00; Stop 01/22/17 at 20:59 Cetirizine HCl (ZyrTEC) 10 mg DAILY PO Last administered on 12/25/16 08:14; Start 12/24/16 at 09:00; Stop 01/23/17 at 08:59 Gabapentin (Neurontin) 300 mg TID PO Last administered on 12/25/16 15:49; Start 12/23/16 at 21:00; Stop 01/22/17 at 20:59 Home Med (Med Rec Complete!) ASDIRECTED XX ; Start 12/23/16 at 18:00; Stop at 18:02; Status DC Hydroxyzine HCl (Atarax) 50 mg Q4HP PRN PO ANXIETY/AGITATION; Start 12/23/16 at 19:15; Stop 01/22/17 at 19:14; Status Cancel Hydroxyzine HCl (Atarax) 50 mg Q4HP PRN PO ANXIETY Last administered on 14:10; Start 12/25/16 at 09:00; Stop 01/24/17 at 08:59 Hydroxyzine HCl (Atarax) 50 mg TID PO Last administered on 12/25/16 08:14; Start 12/23/16 at 21:00; Stop 12/25/16 at 08:47; Status DC Magnesium Hydroxide (Milk Of Magnesia) 30 ml DAILYPRN PRN PO CONSTIPATION; Start 12/23/16 at 20:15; Stop 01/22/17 at 20:14 Meloxicam (Mobic) 15 mg DAILY PO Last administered on 12/25/16 08:14; Start 12/24/16 at 09:00; Stop 01/23/17 at 08:59 Omeprazole (PriLOSEC) 40 mg DAILY PO Last administered on 12/25/16 08:14; Start 12/24/16 at 09:00; Stop 01/23/17 at 08:59 Ondansetron HCl (Zofran) 4 mg TIDP PRN PO NAUSEA OR VOMITING; Start 12/23/16 at 19:15; Stop 01/22/17 at 19:14 Prednisone (Deltasone) 60 mg DAILY PO Last administered on 12/25/16 08:14; Start 12/24/16 at 09:00; Stop 01/23/17 at 08:59 Quetiapine Fumarate (SEROquel) 100 mg QHS PO Last administered on 12/24/16 20: 43; Start 12/24/16 at 21:00; Stop 12/25/16 at 10:42; Status DC Quetiapine Fumarate (SEROquel) 200 mg QHS PO ; Start 12/25/16 at 21:00; Stop 01/24/17 at 20:59 Risperidone (RisperDAL) 0.5 mg BID PO Last administered on 12/25/16 08:14; Start 12/24/16 at 09:00; Stop 01/23/17 at 08:59 Tizanidine HCl (Zanaflex) 4 mg Q8H PRN PO PAIN Last administered on 12/23/16 20 :24; Start 12/23/16 at 20:15; Stop 01/22/17 at 20:14 Trazodone HCl (Desyrel) 50 mg QHSP PRN PO INSOMNIA Last administered on 20:24; Start 12/23/16 at 20:15; Stop 12/24/16 at 10:47; Status DC Venlafaxine HCl (Effexor Xr) 150 mg BID PO Last administered on 12/25/16t 08 :14; Start 12/23/16 at 21:00; Stop 01/22/17 at 20:59 Allergies Coded Allergies: Dust (Unverified Allergy, Mild, 12/23/16) Grass (Unverified Allergy, Mild, 12/23/16) Molds & Smuts (Unverified Allergy, Mild, 12/23/16) Cyclobenzaprine (Unverified Adverse Reaction, Unknown, HALLUCINATES, ) YASH GOODRICH MD Dec 25, 2016 16:46
[2016-12-25 18:00] VITALS: BP 139/77
[2016-12-25] MEDS: tiZANidine 4 MG TAB PO PRN (20:20)
[2016-12-25] MEDS: QUEtiapine FUMARATE 200 MG TAB PO SCH (20:20)
[2016-12-26 06:41] VITALS: BP 134/68
[2016-12-26] MEDS: MELOXICAM (MOBIC) 7.5 MG TAB PO SCH (08:04)
[2016-12-26] MEDS: risperiDONE 0.5 MG TAB PO SCH ×2 (08:04→21:25)
[2016-12-26] MEDS: VENLAFAXINE **XR** 75MG CAPSULE PO SCH ×2 (08:04→21:25)
[2016-12-26] MEDS: predniSONE 20 MG TAB PO SCH (08:04)
[2016-12-26] MEDS: GABAPENTIN 300 MG CAP PO SCH ×3 (08:04→21:25)
[2016-12-26] MEDS: CETIRIZINE (ZyrTEC) 10 MG TAB PO SCH (08:04)
[2016-12-26] MEDS: OMEPRAZOLE 20 MG CAP PO SCH (08:04)
[2016-12-26] MEDS: busPIRone 10 MG TAB PO SCH ×3 (08:04→21:25)
[2016-12-26] MEDS: hydrOXYzine 50 MG TAB PO PRN ×3 (09:26→19:07)
[2016-12-26] MEDS: ACETAMINOPHEN TAB 650MG DOSE (2X325MG) PO PRN (15:29)
[2016-12-26 18:08] VITALS: BP 136/88
[2016-12-26] MEDS: QUEtiapine FUMARATE 200 MG TAB PO SCH (21:25)
--- NOTE | 2016-12-26 21:51 | IPN ---
DATE: 12/26/2016 SUBJECTIVE: Today the patient states, "I was really angry when I came in, but now I'm feeling scared." He says this is because of the patient that he quoted in the unit and it is making him feel afraid. He says he is sleeping well. He says he is not feeling depressed. MENTAL STATUS EXAMINATION: This patient is alert and oriented times three. Eye contact is fair. Psychomotor activity is some decreased. There is no formal thought disorder noted. Mood is depressed. Affect is full range and appropriate. He is not psychotic, suicidal, or homicidal. Concentration is fair. Memory intact. Insight and judgment are fair. DIAGNOSES: 1. Unspecified depressive disorder. 2. Unspecified eating disorder. 3. Borderline personality disorder. TREATMENT PLAN: At this point, we will continue to monitor the patient for continued elevation and stabilization of mood, and we will titrate his medications as indicated.
[2016-12-27 06:42] VITALS: BP 142/64
[2016-12-27] MEDS: CETIRIZINE (ZyrTEC) 10 MG TAB PO SCH (08:35)
[2016-12-27] MEDS: busPIRone 10 MG TAB PO SCH ×3 (08:35→20:50)
[2016-12-27] MEDS: risperiDONE 0.5 MG TAB PO SCH ×2 (08:35→20:51)
[2016-12-27] MEDS: VENLAFAXINE **XR** 75MG CAPSULE PO SCH ×2 (08:35→20:50)
[2016-12-27] MEDS: MELOXICAM (MOBIC) 7.5 MG TAB PO SCH (08:35)
[2016-12-27] MEDS: OMEPRAZOLE 20 MG CAP PO SCH (08:35)
[2016-12-27] MEDS: predniSONE 20 MG TAB PO SCH (08:35)
[2016-12-27] MEDS: GABAPENTIN 300 MG CAP PO SCH ×3 (08:35→20:51)
[2016-12-27] MEDS: hydrOXYzine 50 MG TAB PO PRN ×3 (09:50→19:01)
[2016-12-27 18:09] VITALS: BP 131/74
[2016-12-27] MEDS: QUEtiapine FUMARATE 200 MG TAB PO SCH (20:53)
--- NOTE | 2016-12-27 21:06 | MHIPN ---
DATE: 12/27/2016 The patient today states, "I'm feeling good." He says that he slept good, so overall he is improving. MENTAL STATUS EXAMINATION: The patient is alert and oriented times three. Eye contact is fair. Psychomotor activity is normal. He is verbally spontaneous. There is no formal thought disorder noted. Mood is, "better." His affect is constricted but appropriate to his mood. He is not psychotic, suicidal or homicidal. Concentration is fair . Insight and judgment are fair. DIAGNOSES: 1. Unspecified depressive disorder. 2. Unspecified eating disorder. 3. Borderline personality disorder. TREATMENT PLAN: We will continue to monitor this patient for continued stabilization of his mood and for resolution of any suicidal or homicidal ideations. MARIE
[2016-12-28 06:53] VITALS: BP 135/81
[2016-12-28] MEDS: busPIRone 10 MG TAB PO SCH (08:04)
[2016-12-28] MEDS: CETIRIZINE (ZyrTEC) 10 MG TAB PO SCH (08:04)
[2016-12-28] MEDS: risperiDONE 0.5 MG TAB PO SCH (08:04)
[2016-12-28] MEDS: GABAPENTIN 300 MG CAP PO SCH (08:04)
[2016-12-28] MEDS: OMEPRAZOLE 20 MG CAP PO SCH (08:04)
[2016-12-28] MEDS: MELOXICAM (MOBIC) 7.5 MG TAB PO SCH (08:04)
[2016-12-28] MEDS: VENLAFAXINE **XR** 75MG CAPSULE PO SCH (08:04)
[2016-12-28] MEDS: predniSONE 20 MG TAB PO SCH (08:04)
[2016-12-28] MEDS: hydrOXYzine 50 MG TAB PO PRN (09:10)
[2016-12-28] MEDS ORDERED: RISP0.5T21 PO (10:15)
[2016-12-28] MEDS ORDERED: QUET1TAB9 PO (10:15)
[2016-12-28] MEDS ORDERED: ZANA4CAP PO (15:27)
[2016-12-28] MEDS ORDERED: HYDR50TA70 PO (15:28)
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
== END 2016-12-28 14:25 | disposition home or self-care (01) | DRG 751 ==
LOC: M ED 14:14 → M PSY 19:20
PROVIDERS: ADMIT Psychiatry & Neurology Psychiatry; ATTEND Psychiatry & Neurology Psychiatry
DX: F32.1 Major depressive disorder, single episode, moderate (principal); F60.3 Borderline personality disorder; F11.90 Opioid use, unspecified, uncomplicated; Z79.899 Other long term (current) drug therapy; K21.9 Gastro-esophageal reflux disease without esophagitis; M54.5 Low back pain

== ENCOUNTER 2018-10-05 08:27 | Inpatient (IN) | payer MEDICAID, OTHER ==
[~2018-10-05] VITALS: Ht 180.3 cm; Wt 78.8 kg
[~2018-10-05 08:27] MED LIST changes: +BUSP10TA PO; +CETI10TA PO; +GABA-1171 PO; -GABA-279 PO; +GABA-843 PO; +LORA-243 PO; -LORA10TA2 PO; +MELO15TA28 PO; +NAPR-837 PO; -NAPR500T PO; +PRED20TA PO; +QUET1TAB9 PO; +RISP0.5T21 PO; +ZANA4CAP PO
[2018-10-05] MEDS ORDERED: RISP2TAB3 PO (08:53)
[2018-10-05] MEDS ORDERED: ROPI0.5T PO (08:53)
[2018-10-05] MEDS ORDERED: ALPR1TAB3 PO (08:53)
[2018-10-05] MEDS ORDERED: ALL10TAB28 PO (08:53)
[2018-10-05 09:18] LABS: BASO # 0.1 10^3/uL (0.0-0.2); BASO % 0.6 % (0.0-1.0); EOS % 0.2 % (0.0-3.0); HEMATOCRIT 38.2 % (42.0-52.0); HEMOGLOBIN 12.9 g/dl (13.5-17.5); LYMPH # 1.7 10^3/uL (1.5-6.5); LYMPH % 19.6 % (24.0-44.0); MEAN CORPUSCULAR HEMOGLOBIN 30.7 pg (27.0-33.0); MEAN CORPUSCULAR HGB CONC 33.8 g/dl (32.0-36.5); MONO # 0.7 10^3/uL (0.0-0.8); MONO % 7.9 % (0.0-5.0); NEUTROPHILS # 6.3 10^3/uL (1.8-7.7); NEUTROPHILS % 71.2 % (36.0-66.0); PLATELET COUNT, AUTOMATED 303 10^3/uL (150-450); WHITE BLOOD COUNT 8.8 10^3/uL (4.0-10.0)
[2018-10-05 09:44] LABS: ACETAMINOPHEN LEVEL < 2.0 UG/ML (10.0-30.0); ALBUMIN 4.4 GM/DL (3.2-5.2); ALT/SGPT 17 U/L (12-78); BILIRUBIN,DIRECT 0.1 MG/DL (0.0-0.2); BILIRUBIN,TOTAL 0.4 MG/DL (0.2-1.0); BLOOD UREA NITROGEN 7 MG/DL (7-18); CALCIUM LEVEL 9.2 MG/DL (8.5-10.1); CARBON DIOXIDE LEVEL 29 MEQ/L (21-32); CHLORIDE LEVEL 104 MEQ/L (98-107); CPK CREATINE PHOSPHOKINASE 48 U/L (39-308); CREATININE FOR GFR 0.87 MG/DL (0.70-1.30); ETHYL ALCOHOL (ETHANOL) 0.003 % (0.000-0.010); GLOMERULAR FILTRATION RATE > 60.0 (>60); GLUCOSE, FASTING 92 MG/DL (70-100); POTASSIUM SERUM 3.2 MEQ/L (3.5-5.1); SALICYLATE LEVEL 3.8 MG/DL (5.0-30.0); SODIUM LEVEL 139 MEQ/L (136-145); TOTAL PROTEIN 7.7 GM/DL (6.4-8.2)
[2018-10-05 14:24] LABS: AMPHETAMINES LEVEL URINE NEGATIVE (NEGATIVE); BARBITURATES URINE NEGATIVE (NEGATIVE); BENZODIAZEPINES URINE POSITIVE (NEGATIVE); CANNABINOIDS URINE POSITIVE (NEGATIVE); COCAINE METABOLITE URINE POSITIVE (NEGATIVE); METHADONE URINE NEGATIVE (NEGATIVE); OPIATES URINE NEGATIVE (NEGATIVE); PHENCYCLIDINE URINE NEGATIVE (NEGATIVE)
[2018-10-05] MEDS ORDERED: POTASSIUM CHLORIDE 10 MEQ SR TABLET PO ONE (14:45)
[2018-10-05] MEDS ORDERED: OMEPRAZOLE 20 MG CAP PO ONE (16:15)
[2018-10-05] MEDS ORDERED: ACET-683 PO (16:22)
[2018-10-05] MEDS ORDERED: MOM 30ML SUSPENSION UDC PO PRN (17:45)
[2018-10-05] MEDS ORDERED: MAALOX 30 ML SUSP *UDC PO PRN (17:45)
[2018-10-05 18:12] VITALS: BP 148/92
[2018-10-05] MEDS ORDERED: clonazePAM 1 MG TAB PO ONE ×2 (19:00)
[2018-10-05] MEDS: OMEPRAZOLE 20 MG CAP PO SCH (19:17)
--- NOTE | 2018-10-05 19:32 | ECGEPIP ---
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
[2018-10-05 20:09] VITALS: BP 174/100
[2018-10-05] MEDS: cloNIDine 0.1 MG TAB PO PRN (20:09)
[2018-10-05] MEDS: ACETAMINOPHEN TAB 650MG DOSE (2X325MG) PO PRN (20:09)
[2018-10-05 20:43] VITALS: BP 143/83
[2018-10-05] MEDS: traZODone 50 MG TAB PO PRN (21:36)
[2018-10-06 06:42] VITALS: BP 135/79
[2018-10-06] MEDS: OMEPRAZOLE 20 MG CAP PO SCH (08:07)
[2018-10-06] MEDS ORDERED: clonazePAM 1 MG TAB PO ONE (09:00)
[2018-10-06] MEDS: cloNIDine 0.1 MG TAB PO PRN ×3 (10:01→21:17)
[2018-10-06] MEDS: ACETAMINOPHEN TAB 650MG DOSE (2X325MG) PO PRN ×2 (10:01→17:04)
--- NOTE | 2018-10-06 11:43 | HPEPDOC ---
[facility] Medical History & Physical Date of Admission Oct 06, 2018 Date of Service: Oct 06, 2018 History and Physical CHIEF COMPLAINT: Suspected overdose HISTORY OF PRESENT ILLNESS: Patient is a 23-year-old male with past medical history of substance abuse, GERD, anxiety/depression brought in to ER after suspected overdose of Xanax at home. Reportedly had lost the medication and his mom thought he ingested it so called the police. Patient denies any suicidal ideation or intent to hurt himself. Otherwise no significant medical history. States that he does not tolerate Klonopin well and gets chill when he takes it along with some breathing difficult occasionally? Otherwise denies any other complaints. PAST MEDICAL HISTORY: Refer to [facility] PAST SURGICAL HISTORY: [place] tooth extraction SOCIAL HISTORY: Smoke marijuana. No alcohol, hx prescription drug abuse. FAMILY HISTORY: Father- HTN ALLERGIES: Please see below. REVIEW OF SYSTEMS: 10 point review of system negative except as stated in HPI HOME MEDICATIONS: Please see below. PHYSICAL EXAMINATION: General: No acute distress, Alert Eyes: Normal sclera, EOMI, [place] HENT: Atraumatic, neck supple, moist mucous membranes Cardiovascular: Normal rate, normal rhythm. No murmurs appreciated. Pulmonary: Clear to auscultation b/l, no wheezing GI: Soft, nontender, nondistended Skin: Warm and dry Neuro: CN grossly intact. No focal deficits. Strengths equal b/l. Psych: oriented x 3 LABORATORY DATA: See below. MICROBIOLOGY: Please see below. ASSESSMENT AND PLAN: 1. Anxiety/Depression - Defer to Psych for evaluation and treatment. - Perhaps switch Klonopin to different agent as patient reports possible side effects from it. 2. GERD - c/w home med. 3. Substance abuse Patient currently stable. Will sign off at this time, please call if anything changes or with any concerns, thank you. Vital Signs Vital Signs Date Time Temp Pulse Resp B/P (MAP) Pulse Ox O2 Delivery O2 Flow Rate FiO2 10/06/18 10:01 161/95 10/06/18 06:42 98.3 66 14 10/05/18 16:07 99 Room Air Laboratory Data Labs 24H Laboratory Tests 2 10/05/18 13:51: Urine Amphetamines Screen NEGATIVE, Urine Benzodiazepines Screen POSITIVEH, Urine Opiates Screen NEGATIVE, Urine Methadone Screen NEGATIVE, Urine Barbiturates Screen NEGATIVE, Urine Phencyclidine Screen NEGATIVE, Urine Cocaine Metabolite Screen POSITIVEH, Urine Cannabinoids Screen POSITIVEH Home Medications Scheduled Alprazolam (Alprazolam) 1 Mg Tablet, 1 MG PO QID Cetirizine HCl (Cetirizine HCl) 10 Mg Tablet, 10 MG PO DAILY Omeprazole (Omeprazole) 40 Mg Cap, 40 MG PO DAILY Risperidone (Risperidone) 2 Mg Tablet, 2 MG PO DAILY Ropinirole HCl (Ropinirole HCl) 0.5 Mg Tablet, 0.5 MG PO QHS PATIENT TAKES 1-2 TABLETS Scheduled PRN Acetaminophen (Acetaminophen) 500 Mg Tablet, 1,000 MG PO Q6H PRN for PAIN Allergies Coded Allergies: Grass (Unverified Allergy, Mild, 10/05/18) mold (Unverified Allergy, Mild, 10/05/18) cyclobenzaprine (Verified Adverse Reaction, Intermediate, HALLUCINATES, 10/06/18) Dust (Verified Adverse Reaction, Mild, 10/06/18) clonazepam (Verified Adverse Reaction, Mild, cold sweat, diarrhea, 10/06/18) A-FIB/CHADSVASC A-FIB History Current/History of A-Fib/PAF?: No JESE HERNANDEZ MD Oct 06, 2018 11:43
[2018-10-06] MEDS ORDERED: risperiDONE 2 MG TAB PO ONE (11:45)
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
[2018-10-06] MEDS: OLANZapine ORAL DISINTEGRATING TAB 5MG PO PRN ×2 (11:58→18:37)
[2018-10-06] MEDS: LORazepam 0.5 MG TAB PO PRN (14:12)
[2018-10-06 18:07] VITALS: BP 126/76
[2018-10-06 20:57] VITALS: BP 108/62
[2018-10-06] MEDS: traZODone 50 MG TAB PO PRN (21:31)
[2018-10-07 07:00] VITALS: BP 121/73
[2018-10-07] MEDS: ACETAMINOPHEN TAB 650MG DOSE (2X325MG) PO PRN ×2 (07:38→14:32)
[2018-10-07] MEDS: OLANZapine ORAL DISINTEGRATING TAB 5MG PO PRN ×3 (07:38→20:23)
[2018-10-07] MEDS: OMEPRAZOLE 20 MG CAP PO SCH (08:12)
[2018-10-07] MEDS: risperiDONE 2 MG TAB PO SCH (08:12)
[2018-10-07] MEDS: LORazepam 0.5 MG TAB PO PRN (08:13)
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
[2018-10-07] MEDS: cloNIDine 0.1 MG TAB PO PRN ×3 (11:39→20:53)
[2018-10-07 18:08] VITALS: BP 140/75
[2018-10-07] MEDS: traZODone 50 MG TAB PO PRN (21:26)
[2018-10-08 06:28] VITALS: BP 101/58
[2018-10-08] MEDS: OMEPRAZOLE 20 MG CAP PO SCH (08:18)
[2018-10-08] MEDS: cloNIDine 0.1 MG TAB PO PRN ×2 (08:19→19:35)
[2018-10-08] MEDS: risperiDONE 2 MG TAB PO SCH (08:19)
[2018-10-08] MEDS: ACETAMINOPHEN TAB 650MG DOSE (2X325MG) PO PRN ×3 (08:19→21:31)
[2018-10-08] MEDS: OLANZapine ORAL DISINTEGRATING TAB 5MG PO PRN ×2 (09:19→17:03)
[2018-10-08 19:08] VITALS: BP 128/84
[2018-10-08] MEDS: traZODone 50 MG TAB PO PRN (21:30)
[2018-10-09 06:51] VITALS: BP 117/72
[2018-10-09] MEDS: risperiDONE 2 MG TAB PO SCH (08:05)
[2018-10-09] MEDS: OMEPRAZOLE 20 MG CAP PO SCH (08:05)
[2018-10-09] MEDS: OLANZapine ORAL DISINTEGRATING TAB 5MG PO PRN ×2 (08:05→15:20)
[2018-10-09] MEDS: ACETAMINOPHEN TAB 650MG DOSE (2X325MG) PO PRN ×2 (08:06→17:13)
--- NOTE | 2018-10-09 08:48 | MHIPN ---
DATE: 10/08/2018 The patient today states, "I'm feeling great." He says he slept good. He has no complaints. I am not eliciting any mood symptoms. MENTAL STATUS EXAM: He is alert and oriented times three. Eye contact is fairly good. Verbally spontaneous. There is no formal thought disorder. He says his mood is "really good." Affect full range and appropriate. He is not psychotic, suicidal, or homicidal. Concentration fair. Memory intact. Insight and judgment are good. DIAGNOSES: Anxiety disorder, unspecified. Benzodiazepine use disorder. Amphetamine use disorder. Cannabis use disorder. TREATMENT PLAN: At this point, patient will be further monitored for continued elevation and stabilization of his mood and for continued resolution of suicidal ideation. The plan is to discharge him when stable with appropriate followup.
[2018-10-09] MEDS: cloNIDine 0.1 MG TAB PO PRN ×2 (09:47→17:28)
[2018-10-09 17:28] VITALS: BP 117/72
[2018-10-09 18:18] VITALS: BP 130/81
[2018-10-09] MEDS: traZODone 50 MG TAB PO PRN (21:19)
--- NOTE | 2018-10-09 22:32 | IPN ---
DATE: 10/09/2018 The patient today states, "I'm doing good." He says he is trying not to take too many as needed medications and that he is doing better without them. He slept good. MENTAL STATUS EXAMINATION: He is alert and oriented times three, pleasant and cooperative. He is verbally spontaneous. Eye contact is good. Mood is good. Affect is full range and appropriate. He is not psychotic. He is not suicidal or homicidal. Concentration is fair. Insight and judgment is fair. DIAGNOSES: 1. Anxiety disorder unspecified. 2. Benzodiazepine use disorder. 3. Amphetamine use disorder. 4. Cannabis use disorder. TREATMENT AND PLAN: We will continue to monitor the patient for continued elevation and stabilization of his mood and continued resolution of suicidal ideation.
[2018-10-10 06:44] VITALS: BP 122/78
[2018-10-10] MEDS: risperiDONE 2 MG TAB PO SCH (08:12)
[2018-10-10] MEDS: OLANZapine ORAL DISINTEGRATING TAB 5MG PO PRN (08:12)
[2018-10-10] MEDS: OMEPRAZOLE 20 MG CAP PO SCH (08:12)
[2018-10-10] MEDS ORDERED: TRAZ-252 PO (09:09)
[2018-10-10] MEDS ORDERED: OLAN5ZYD PO (09:09)
[2018-10-10] MEDS ORDERED: RISP2TAB3 PO (09:09)
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
== END 2018-10-10 12:30 | disposition home or self-care (01) | DRG 756 ==
LOC: M ED 08:27 → M ED INP 17:37 → M PSY 18:38 → UNDODISIN 10-06 04:00
PROVIDERS: ADMIT Psychiatry & Neurology Psychiatry; ATTEND Psychiatry & Neurology Psychiatry
DX: F41.9 Anxiety disorder, unspecified (principal); F32.9 Major depressive disorder, single episode, unspecified; F12.90 Cannabis use, unspecified, uncomplicated; F15.90 Other stimulant use, unspecified, uncomplicated; F11.90 Opioid use, unspecified, uncomplicated; Z79.899 Other long term (current) drug therapy; Z88.8 Allergy status to other drugs, medicaments and biological substances; K21.9 Gastro-esophageal reflux disease without esophagitis

== ENCOUNTER → 2018-12-26 | Outpatient (CLI) | payer MEDICAID ==
[~2018-12-26] MED LIST changes: +ACET-683 PO; +ALL10TAB29 PO; +ALPR1TAB3 PO; +OLAN5ZYD PO; -QUET1TAB9 PO; +QUET200T2 PO; +RISP2TAB3 PO; +ROPI0.5T PO; +TRAZ-252 PO
== END ==
LOC: M OUTALCOH 07:34
PROVIDERS: ATTEND Psychiatry & Neurology Psychiatry
DX: Z03.89 Encounter for observation for other suspected diseases and conditions ruled out (principal)

== ENCOUNTER → 2019-02-01 | Outpatient (CLI) | payer MEDICAID ==
[~2019-02-01] MED LIST changes: -OMEP40CA2 PO; +OMEP40CA97 PO
--- NOTE | 2019-02-01 16:21 | REP ---
Five views lumbar spine: 02/01/2019. Indication: Lumbar pain. Comparison: 11/05/2016. Findings: There is no acute fracture, subluxation or dislocation. No destructive osseous lesions are present. Alignment is anatomic. There is a punctate calcification within the paraspinal soft tissues to the right of superior L4. This is not present on the previous study. Impression: Unremarkable osseous lumbar spine. Punctate calcification to the right of L4. Ureteral calculus? Electronically Signed by Jean Montiel DO 02/01/2019 04:12 P
--- NOTE | 2019-02-01 16:23 | REP ---
Three-view sacrum/coccyx: 02/01/2019. Indication: Sacrococcygeal pain. Comparison: None. Findings: There is no evidence of sacrococcygeal fracture. No osseous destructive lesions are present. Left pelvic phlebolith is noted. Impression: No sacrococcygeal fracture. Electronically Signed by Jean Montiel DO 02/01/2019 04:14 P
== END ==
LOC: M WUC 15:46
PROVIDERS: ATTEND Nurse Practitioner Family
DX: M54.5 Low back pain (principal)

== ENCOUNTER → 2019-02-24 | Outpatient (CLI) | payer OTHER ==
--- NOTE | 2019-02-24 11:21 | REP ---
MRI lumbar spine: 02/24/2019. Indication: Low back pain. Comparison: None. Technique: Multiplanar short and long TR sequences of the lumbar spine were obtained without IV Gadolinium. Findings: There is mild straightening of the lumbar lordosis. Disc space signal and height is maintained throughout. No worrisome marrow signal is present. The visualized cord is normal. No significant paraspinal soft tissue abnormalities are present. There is no disc herniation or significant spinal canal / neural foraminal narrowing throughout. Impression: Unremarkable MRI of the lumbar spine. Electronically Signed by Jean Montiel DO 02/24/2019 11:13 A
== END ==
LOC: M RAD 09:12
PROVIDERS: ATTEND Nurse Practitioner Family
DX: M54.5 Low back pain (principal)

== ENCOUNTER → 2019-07-20 | Outpatient (REF) | payer SELFPAY ==
[~2019-07-20] MED LIST changes: -ROPI0.5T PO; +ROPI0.5T3 PO; -TRAZ10TA PO; +TRAZ1TAB12 PO
[2019-07-20 16:14] LABS: HEMATOCRIT 45.6 % (42.0-52.0); MEAN CORPUSCULAR HGB CONC 32.9 g/dl (32.0-36.5); MEAN CORPUSCULAR VOLUME 91.2 fl (80.0-96.0); PLATELET COUNT, AUTOMATED 328 10^3/uL (150-450); WHITE BLOOD COUNT 7.5 10^3/uL (4.0-10.0)
[2019-07-20 16:49] LABS: ALBUMIN 4.6 GM/DL (3.2-5.2); ALT/SGPT 14 U/L (12-78); BILIRUBIN,TOTAL 0.3 MG/DL (0.2-1.0); BLOOD UREA NITROGEN 10 MG/DL (7-18); CARBON DIOXIDE LEVEL 30 MEQ/L (21-32); CHLORIDE LEVEL 104 MEQ/L (98-107); CHOLESTEROL LEVEL 146 MG/DL (<200); CHOLESTEROL RISK RATIO 2.517 (<5); CREATININE FOR GFR 0.96 MG/DL (0.70-1.30); FREE THYROXINE INDEX 3.6 % (1.4-3.8); GLOMERULAR FILTRATION RATE > 60.0 (>60); GLUCOSE, FASTING 84 MG/DL (70-100); HDL CHOLESTEROL 58 MG/DL (>40); LDL CHOLESTEROL 71 MG/DL (<100); NON-HDL-C 88 MG/DL; POTASSIUM SERUM 4.6 MEQ/L (3.5-5.1); SODIUM LEVEL 136 MEQ/L (136-145); T UPTAKE 33 % (33-40); THYROID STIMULATING HORMONE 0.462 uIU/ML (0.358-3.740); TOTAL 25(OH) VITAMIN D 19.5 NG/ML (30.0-100.0); TOTAL PROTEIN 7.9 GM/DL (6.4-8.2); TRIGLYCERIDES LEVEL 86 MG/DL (<150)
== END ==
LOC: M SFHCCLAY 10:50
PROVIDERS: ATTEND Nurse Practitioner Family
DX: Z13.6 Encounter for screening for cardiovascular disorders (principal); K21.9 Gastro-esophageal reflux disease without esophagitis; F41.9 Anxiety disorder, unspecified

== ENCOUNTER → 2019-09-14 | Outpatient (CLI) | payer MEDICAID | LOC: M OUTALCOH 10:04 | PROVIDERS: ATTEND Psychiatry & Neurology Addiction Medicine | DX: Z13.9 Encounter for screening, unspecified (principal); F13.20 Sedative, hypnotic or anxiolytic dependence, uncomplicated; F12.10 Cannabis abuse, uncomplicated ==

== ENCOUNTER → 2019-10-17 | Outpatient (RCR) | payer MEDICAID | LOC: M OUTALCOH 09-22 14:32 | PROVIDERS: ATTEND Psychiatry & Neurology Addiction Medicine | DX: F13.20 Sedative, hypnotic or anxiolytic dependence, uncomplicated (principal); F12.10 Cannabis abuse, uncomplicated ==

== ENCOUNTER → 2019-11-17 | Outpatient (RCR) | payer MEDICAID ==
[~2019-11-17] MED LIST changes: -ALL10TAB29 PO; +CETI-24 PO
== END ==
LOC: M OUTALCOH 10-18 15:08
PROVIDERS: ATTEND Psychiatry & Neurology Addiction Medicine
DX: F13.20 Sedative, hypnotic or anxiolytic dependence, uncomplicated (principal); F12.10 Cannabis abuse, uncomplicated

== ENCOUNTER → 2021-09-17 | Outpatient (CLI) | payer MEDICAID, OTHER ==
[~2021-09-17] MED LIST changes: +GABA-282 PO; -GABA-843 PO; +NAPR-849 PO; -NAPR250T4 PO; +OMEP40CA4 PO; -OMEP40CA97 PO; +RISP-9 PO; -RISP2TAB3 PO
== END ==
LOC: M LAB 15:46
PROVIDERS: ATTEND Physician Assistant
DX: L40.9 Psoriasis, unspecified (principal)

== ENCOUNTER → 2022-02-04 | Outpatient (CLI) | payer OTHER | LOC: M LABSMTC 09:42 | PROVIDERS: ATTEND Anesthesiology | DX: Z20.828 Contact with and (suspected) exposure to other viral communicable diseases (principal); Z11.59 Encounter for screening for other viral diseases ==

== ENCOUNTER → 2022-02-15 | Outpatient (CLI) | payer OTHER | LOC: M LABSMTC 09:04 | PROVIDERS: ATTEND Anesthesiology | DX: Z20.828 Contact with and (suspected) exposure to other viral communicable diseases (principal); Z11.59 Encounter for screening for other viral diseases ==

== ENCOUNTER 2022-07-27 07:15 | Day surgery (SDC) | payer OTHER ==
[~2022-07-27] VITALS: Ht 180.3 cm; Wt 65.8 kg
[~2022-07-27 07:15] MED LIST changes: +LIDOCAINE 2% 100MG/5ML SDV (FOR ANES.) As Ordered ONE; +NS 1,000 ML IV ONE; +fentaNYL 100 MCG/2 ML INJECTION As Ordered ONE; +propofoL 500 MG/50 ML VIAL As Ordered ONE
[2022-07-27 09:30] VITALS: BP 143/84
== END 2022-07-27 09:40 | disposition home or self-care (01) ==
LOC: M OPP 07:15
PROVIDERS: ATTEND Internal Medicine Gastroenterology
DX: K64.0 First degree hemorrhoids (principal); K31.89 Other diseases of stomach and duodenum; F17.200 Nicotine dependence, unspecified, uncomplicated; Z79.899 Other long term (current) drug therapy; Z88.8 Allergy status to other drugs, medicaments and biological substances
CPT/HCPCS: 43239; 45380; 88305; J3010

== ENCOUNTER → 2023-03-01 | Outpatient (REF) | payer OTHER ==
[~2023-03-01] MED LIST changes: +DIAZ-654; -LIDOCAINE 2% 100MG/5ML SDV (FOR ANES.) As Ordered ONE; -NS 1,000 ML IV ONE; -ROPI0.5T3 PO; +ROPI0.5T33 PO; -VALI10TA; -fentaNYL 100 MCG/2 ML INJECTION As Ordered ONE; -propofoL 500 MG/50 ML VIAL As Ordered ONE
[2023-03-01 17:26] LABS: BASO # 0.1 10^3/uL (0.0-0.2); EOS % 0.5 % (0.0-3.0); HEMATOCRIT 39.8 % (42.0-52.0); HEMOGLOBIN 13.8 g/dl (13.5-17.5); LYMPH # 2.6 10^3/uL (1.5-5.0); LYMPH % 40.6 % (24.0-44.0); MEAN CORPUSCULAR HEMOGLOBIN 32.3 pg (27.0-33.0); MEAN CORPUSCULAR HGB CONC 34.7 g/dl (32.0-36.5); MEAN CORPUSCULAR VOLUME 93.2 fl (80.0-96.0); MONO # 0.6 10^3/uL (0.0-0.8); MONO % 9.4 % (2.0-8.0); NEUTROPHILS # 3.1 10^3/uL (1.5-8.5); NEUTROPHILS % 48.3 % (36.0-66.0); PLATELET COUNT, AUTOMATED 292 10^3/uL (150-450); RED BLOOD COUNT 4.27 10^6/uL (4.30-6.10); WHITE BLOOD COUNT 6.3 10^3/uL (4.0-10.0)
[2023-03-01 17:52] LABS: URIC ACID 3.4 MG/DL (3.7-9.2)
[2023-03-01 17:54] LABS: C REACTIVE PROTEIN QUANTITATIV < 0.40 MG/DL (<1.0)
[2023-03-01 17:56] LABS: ALKALINE PHOSPHATASE 68 U/L (46-116); ALT/SGPT 14 U/L (7.0-40); AST/SGOT 14 U/L (<34); BILIRUBIN,TOTAL 0.3 MG/DL (0.3-1.2); BLOOD UREA NITROGEN 9 MG/DL (9-23); CALCIUM LEVEL 8.9 MG/DL (8.5-10.1); CARBON DIOXIDE LEVEL 30 MMOL/L (20-31); CHLORIDE LEVEL 98 MMOL/L (98-107); CREATININE FOR GFR 0.74 MG/DL (0.70-1.30); GLOMERULAR FILTRATION RATE > 60.0 (>60); GLUCOSE, FASTING 66 MG/DL (60-100); POTASSIUM SERUM 3.8 MMOL/L (3.5-5.1); SODIUM LEVEL 136 MMOL/L (136-145); TOTAL PROTEIN 6.7 G/DL (5.7-8.2)
[2023-03-01 17:58] LABS: RHEUMATOID FACTOR QUANT < 3.5 IU/ML (<14)
[2023-03-01 18:08] LABS: ERYTHROCYTE SEDIMENTATION RATE 4 mm/hr (0-15)
== END ==
LOC: M SFHCDERM 14:58
PROVIDERS: ATTEND Physician Assistant
DX: M25.541 Pain in joints of right hand (principal); M25.542 Pain in joints of left hand

== ENCOUNTER → 2024-12-01 | Outpatient (REF) | payer OTHER ==
[~2024-12-01] MED LIST changes: +GABA-1172 PO; -GABA-282 PO; +RISP-106 PO; -RISP-9 PO
[2024-12-01 18:12] LABS: BASO # 0.0 10^3/uL (0.0-0.2); BASO % 0.7 % (0.0-1.0); EOS # 0.1 10^3/uL (0.0-0.5); EOS % 1.1 % (0.0-3.0); LYMPH # 2.1 10^3/uL (1.5-5.0); LYMPH % 38.7 % (24.0-44.0); MONO # 0.5 10^3/uL (0.0-0.8); MONO % 9.9 % (2.0-8.0); NEUTROPHILS # 2.7 10^3/uL (1.5-8.5); NEUTROPHILS % 49.2 % (36.0-66.0); PLATELET COUNT, AUTOMATED 287 10^3/uL (150-450)
[2024-12-01 18:19] LABS: ALT/SGPT 15 U/L (7.0-40); AST/SGOT 15 U/L (<34); CALCIUM LEVEL 9.0 MG/DL (8.5-10.1); CARBON DIOXIDE LEVEL 32 MMOL/L (20-31); CHLORIDE LEVEL 103 MMOL/L (98-107); CHOLESTEROL LEVEL 124 MG/DL (<200); CHOLESTEROL RISK RATIO 3.17 (<5); CREATININE FOR GFR 0.77 MG/DL (0.70-1.30); GLOMERULAR FILTRATION RATE > 90.0 (>60); IRON (FE) 68 UG/DL (65-175); LDL CHOLESTEROL 68.9 MG/DL (<100); NON-HDL-C 84.9 MG/DL; POTASSIUM SERUM 3.5 MMOL/L (3.5-5.1); SODIUM LEVEL 140 MMOL/L (136-145); TRIGLYCERIDES LEVEL 80 MG/DL (<150)
[2024-12-01 18:20] LABS: TOTAL 25(OH) VITAMIN D 23.0 NG/ML (20.0-100.0); VITAMIN B12 LEVEL 533 PG/ML (211-911)
[2024-12-01 18:21] LABS: FREE T4 1.08 NG/DL (0.89-1.76)
[2024-12-01 18:32] LABS: ESTIMATED AVERAGE GLUCOSE 97.0 MG/DL (60-110)
== END ==
LOC: M LABDRAWC 17:01
PROVIDERS: ATTEND Physician Assistant Medical
DX: Z13.6 Encounter for screening for cardiovascular disorders (principal); R53.83 Other fatigue